=== PATIENT | female | born 1950 | race Caucasian/White ===

== ENCOUNTER 2019-03-28 07:00 | Inpatient (IN) | payer MEDICARE, MEDICAID ==
[2019-03-28] MEDS ORDERED: Lidocaine 1% w/Epinephrine 1:100K 20 ML VIAL ONE (07:13)
--- NOTE | 2019-03-28 07:44 | CT ---
CT brain noncontrast: 03/28/2019 HISTORY: 68-year-old female status post acute head trauma from fall COMPARISON: 08/17/2010 FINDINGS: Large, confluent regions of encephalomalacia and gliosis involving right frontal, temporal, and parie agnes lobes, with associated ex vacuo dilation of right lateral ventricle. To a lesser degree, there is ex vacuo dilation of left lateral ventricle due to chronic atrophy. Wallerian degeneration of right side of brainstem. Heavy atherosclerotic callus location of intracran ial vertebral arteries and basilar artery. No acute subdural, epidural, subarachnoid, or intra-axial hemorrhage. No acute displaced calvarial fr acture. No mass effect or herniation. No interval change overall. IMPRESSION: 1. No acute intracranial findings. 2. 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 3. Diffuse brain atrophy.
--- NOTE | 2019-03-28 07:48 | CT ---
CT CERVICAL SPINE NONCONTRAST: DATE: 03/28/2019 HISTORY: cervical trauma FINDINGS: There are no jumped or perched facets. There is no evidence of acute fracture. The vertebral body hei ghts are maintained. There is no prevertebral soft tissue swelling. There is moderate degenerative disc disease at several levels. There is no significant degenerative facet disease. IMPRESSION: No evidence of acute fracture or acute traumatic subluxation.
--- NOTE | 2019-03-28 08:56 | RAD ---
CHEST 1 VIEW: Date: 03/28/19 INDICATION: History of CVA and hypertension. Status post fall. COMPARISON: None. FINDINGS: The patient is rotated to the right, limiting exam. There is suspicion for a small right pleural effu ja with right basilar air space opacity. The visualized left lung is clear. Heart size when adjusti ng for positioning and technique is within normal limits. There are vascular calcifications involving the thoracic aorta. No pneumothorax is evident. No definite acute osseous abnormality is noted. Sugg est a healed fracture deformity of the left mid shaft clavicle. IMPRESSION: Small right pleural effusion and right basilar opacity. Some of this could be projection related to t he right hemidiaphragm. Repeat single view of the chest with improved inspiration and positioning is recommended. POS: CET
[2019-03-28 09:47] LABS: Hemoglobin 14.4 g/dL (12.0-16.0); Mean Corpuscular HGB CONC 31.5 g/dL (32.0-36.0); Mean Corpuscular Hemoglobin 30.5 pg (27.0-31.0); Mean Corpuscular Volume 96.8 fL (78.0-98.0); Mean Platelet Volume 7.2 fL (7.4-10.4); Platelet Count 424 thou/uL (130-400); Red Blood Cell (RBC) Count 4.72 mill/uL (4.20-5.40); White Blood Cell (WBC) Count 23.3 thou/uL (4.8-10.8)
[2019-03-28 10:01] LABS: Lactic Acid 2.1 mmol/L (0.5-2.2)
[2019-03-28 10:08] LABS: ALT (SGPT) 11 U/L (8-55); AST (SGOT) 16 U/L (5-34); Albumin 2.8 g/dL (3.4-4.8); Alkaline Phosphatase 155 U/L (40-150); Anion Gap 14 mmol/L (10-20); BUN (Urea Nitrogen) 21 mg/dL (9.8-20.1); Bilirubin, Total 0.4 mg/dL (0.2-1.2); Calc. Creatinine Clearance 0 mL/min (70-130); Calcium 8.9 mg/dL (7.8-10.44); Carbon Dioxide 29 mmol/L (23-31); Chloride 105 mmol/L (98-107); Estimated GFR-MDRD 76; Glucose 114 mg/dL (80-115); Protein, Total 6.8 g/dL (6.0-8.3); Sodium 145 mmol/L (136-145)
[2019-03-28 10:11] LABS: Band 14 % (5-11); Lymphocytes 11 % (21-51); MDiff Complete? YES; Monocytes 8 % (0-10); Neutrophil 67 % (42-75); Platelet Morphology Comment Appears Increased; RBC Morphology Normal
[2019-03-28 10:15] LABS: Bilirubin Moderate (Negative); Blood, Urine Large (Negative); Clarity TURBID (Clear); Glucose, Urine (Dipstick) Negative (Negative); Leukocyte Moderate (Negative); Nitrite Positive (Negative); Protein, Urine (Dipstick) 300 mg/dL (Neg-Trace); Specific Gravity, Urine 1.012 (1.002-1.036); pH, Urine 7.5 (5.0-9.0)
[2019-03-28 10:22] LABS: Crystals/HPF 2+ TRIPLE PHOS HPF (Negative); Hyaline Casts/LPF NONE SEEN LPF (0-3 Hyaline)
[2019-03-28 10:23] LABS: Bacteria/HPF 4+ HPF (None Seen)
[2019-03-28] MEDS ORDERED: Sodium Chloride 0.9% 100 ML ONE (10:46)
[2019-03-28] MEDS ORDERED: Piperacillin/Tazobactam 4.5 GM VIAL ONE (10:46)
[2019-03-28] MEDS ORDERED: Ondansetron PF 4 MG/2 ML Vial IVP PRN (10:55)
[2019-03-28] MEDS ORDERED: Acetaminophen 325 MG TAB PO PRN (10:55)
[2019-03-28] MEDS ORDERED: Ondansetron ODT 4 MG TAB PO PRN (10:55)
[2019-03-28] MEDS ORDERED: Acetaminophen 650 MG Suppository PR PRN (10:55)
[2019-03-28] MEDS ORDERED: hydrALAZINE 20 MG/ML VIAL SLOW IVP PRN (10:55)
--- NOTE | 2019-03-28 11:06 | PDOC.FPRHP ---
- History of Present Illness Chief Complaint: Fall History of Present Illness: Pt is AOx1 on exam, reported at baseline, unable to answer questioning adequately. The following history is obtained from medical records and staff. Fell from bed (approx 2ft) overnight, sustained head laceration, no known new complaints. No reported fever, change in appetite, or hx of O2 requirement. ED Course: CBC, CMP, UA, U/BCx, LA EKG, CXR, CT brain/cspine KCl, levaquin, vanc, zosyn, 1L NS - History PMHx: CVA w/ L hemiplegia, hypothyroid, GERD, HLD, HTN, Generalized seizures PSHx: unknown FHx: unknown Social: Lives at [facility] - Review of Systems ROS unobtainable: due to mental status - Vital signs 155/98, Pulse: 100, Resp: 22, Temp: 98.8 (Oral), Pain: 5, O2 sat: 88 on 4L Oxygen - Physical Exam Constitutional: NAD HEENT: conjunctiva clear, grossly normal vision, MMM Neck: supple, trachea midline Chest: no lesions Heart: normal S1/S2, no murmurs/rubs/gallops, pulses present, no edema, other ( sinus tachycardia) Lungs: CTAB, no respiratory distress, good air movement Abdomen: soft, bowel sounds present, no masses/distention Musculoskeletal: normal structure Neurological: other (baseline neurologic deficits) Skin: no rash/lesions, good turgor Heme/Lymphatic: no unusual bruising or bleeding Psychiatric: normal mood and affect FMR H&P: Results - Labs Result Diagrams: 03/28/19 09:33 03/28/19 09:33 Lab results: WBC 23.3 thou/uL (4.8-10.8) H 03/28/19 09:33 Hgb 14.4 g/dL (12.0-16.0) 03/28/19 09:33 Hct 45.7 % (36.0-47.0) 03/28/19 09:33 MCV 96.8 fL (78.0-98.0) 03/28/19 09:33 Plt Count 424 thou/uL (130-400) H 03/28/19 09:33 Band Neuts % (Manual) 14 % (5-11) H 03/28/19 09:33 Sodium 145 mmol/L (136-145) 03/28/19 09:33 Potassium 3.0 mmol/L (3.5-5.1) L 03/28/19 09:33 Chloride 105 mmol/L (98-107) 03/28/19 09:33 Carbon Dioxide 29 mmol/L (23-31) 03/28/19 09:33 BUN 21 mg/dL (9.8-20.1) H 03/28/19 09:33 Creatinine 0.75 mg/dL (0.6-1.1) 03/28/19 09:33 Glucose 114 mg/dL (80-115) 03/28/19 09:33 Lactic Acid 2.0 mmol/L (0.5-2.2) 03/28/19 10:11 Calcium 8.9 mg/dL (7.8-10.44) 03/28/19 09:33 Total Bilirubin 0.4 mg/dL (0.2-1.2) 03/28/19 09:33 AST 16 U/L (5-34) 03/28/19 09:33 ALT 11 U/L (8-55) 03/28/19 09:33 Alkaline Phosphatase 155 U/L (40-150) H 03/28/19 09:33 Serum Total Protein 6.8 g/dL (6.0-8.3) 03/28/19 09:33 Albumin 2.8 g/dL (3.4-4.8) L 03/28/19 09:33 Urine Ketones Trace mg/dL (Negative) H 03/28/19 09:59 Urine Blood Large (Negative) H 03/28/19 09:59 Urine Nitrite Positive (Negative) H 03/28/19 09:59 Ur Leukocyte Esterase Moderate (Negative) H 03/28/19 09:59 Urine RBC 4-6 HPF (0-3) 03/28/19 09:59 Urine WBC Greater Than 50-TNTC HPF (0-3) H 03/28/19 09:59 Ur Squamous Epith Cells Greater than 50-TNTC HPF (0-3) H 03/28/19 09:59 Urine Bacteria 4+ HPF (None Seen) H 03/28/19 09:59 FMR H&P: A/P - Problem List (1) HTN (hypertension) Current Visit: Yes Status: Acute Code(s): I10 - ESSENTIAL (PRIMARY) HYPERTENSION (2) HLD (hyperlipidemia) Current Visit: Yes Status: Acute Code(s): E78.5 - HYPERLIPIDEMIA, UNSPECIFIED (3) Hypothyroid Current Visit: Yes Status: Acute Code(s): E03.9 - HYPOTHYROIDISM, UNSPECIFIED (4) History of CVA (cerebrovascular accident) Current Visit: Yes Status: Acute Code(s): Z86.73 - PRSNL HX OF TIA (TIA), AND CEREB INFRC W/O RESID DEFICITS (5) Sepsis Current Visit: Yes Status: Acute Code(s): A41.9 - SEPSIS, UNSPECIFIED ORGANISM (6) UTI (urinary tract infection) Current Visit: Yes Status: Acute (7) Acute respiratory failure with hypoxia Current Visit: Yes Status: Acute Code(s): J96.01 - ACUTE RESPIRATORY FAILURE WITH HYPOXIA - Plan Sepsis 2/2 UTI - presenting with elevated WBC count, Tachycardia, and O2 requirement - LA wnl, procal pending, monitor daily CBC - s/p 1L NS, Vanc/zosyn/levaquin in ED - begin rocephin, addition 500ml Bolus - monitor on medical Acute hypoxic respiratory failure - requiring 2L NC in ED on admission - no reported O2 requirement at baseline - CXR wnl, no concern for fluid overload - possibly 2/2 above, monitor. PRN O2 as needed CVA w/ L hemiplegia - reported at baseline, CT head near baseline - NPO pending speech eval Hypothyroid - aware, continue home meds GERD - aware, continue home meds HLD - aware HTN - aware, continue home meds - hydralazine PRN Generalized seizures - aware, continue home meds code: full PCP: Lexi ppx: [facility] dispo: monitor on medical, IV abx FMR H&P: Upper Level - Pertinent history 68F is seen for possible UTI discovered incidentally. This morning, she apparently fell from bed at [facility]. She suffered two laceration on her head, left side. She was brought to ER for futher evaluation. She had imaging of head, neck and chest that did not find any acute injuries. She had her laceration sutured in ER. While in ER, she had routine lab drawn. Labwork was concerning for UTI, including elevated WBC, positive UA and she had vital with increased pulse and respiration. Patient is appear to have baseline demntia with no family or senior care record available for review. RoS could not be obtained due to patient's dementia. Gen: Cachexia, AOx1 (To self), attempting to get out of bed by pulling self up with guardrails. Is able to follow simple command, unable to answer questions besides name. HEENT: Two laceration noted on left fore head, midline trachea, hearing and vision grossly intact but diminished, moist mucosal membrane CV: RRR with no apparent m/g/r. Tachycardic Resp: CTA, no apparent rhonchi, crackles. GI: Soft abdomen, normoactive, not tender to palpation, no suprapubic tenderness MSK: No CVA tenderness Ext: No pitting edema Neuro: Unable to move left arm or leg when requested. Contractures on left side. 1. Sepsis likely due to gram negative kenney urinary infection - Suspected due to positive UA, leukocytosis with left shift and abnormal vitals. - Previous urine culture shows recurrent E. coli infection and occasional proteus. These organisms were resistant to florquinolone and macrobid. - Plan 30 ml/kg fluid bolus total. Will place patient on ceftriaxone. - Further lab includes procalcitonin. Will follow up with blood and urine culture. 2. Hypokalemia: - Potassium was 3.0. Was given 40 of mEq. - Reevaluate again tomorrow. 3. Protein calorie malnutrition - Patient shows sign of cachexia, low albumin. - Consider consultation with dietary for recs on nutritional supplementation. 4. Acute hypoxic resp failure - Apparently is using O2 above baseline. No documentation of her usual O2 saturation - CXR does not shows acute lung abnormalities. Plan to supplement with O2, wean down as appropriate See Game Tester note for chornic issues. - Plan Date/Time: 03/28/19 9626 I, [Dale Rivas], have evaluated this patient and agree with findings/plan as outlined by inclusion intern resident. Pertinent changes/additions are listed here. Addendum - Attending - Attending Attestation Date/Time: 03/28/19 3077 I personally evaluated the patient and discussed the management with Dr. Mathew/ Evelyn. I agree with the History, Examination, Assessment and Plan documented above with any addition or exceptions noted below. Patient with history of dementia and previous CVA presenting after fall at senior care. Upon evaluation, noted to have leukocytosis and UA suggestive of UTI. Due to elevated WBC and tachycardia, presumed sepsis and admitted for further workup. Apparently, she is also not at her mental status baseline. She is currently AxOx1. Exam shows diffuse ecchymosis L side of face with stitches in place. Exam otherwise benign. Labs show leukocytosis, UA c/w UTI, and elevated PCT. CT scan does not show intracranial defect. Patient will be admitted for Sepsis 2/2 UTI. Continue Rocephin and IVF, await cx. Trend PCT. Pain control as needed. Continue chronic meds for chronic conditions. Anticipate 2-3 hospitalization pending clinical course.
[2019-03-28] MEDS ORDERED: Lactated Ringer's 500 ML IV SCH (11:15)
[2019-03-28 15:17] VITALS: BMI 17.2
[2019-03-28] MEDS: cefTRIAXone\\ROCEPHIN 2 GM in Sodium Chloride 0.9% 100 ML IVPB SCH (16:39)
[2019-03-28] MEDS: Divalproex Sodium 125 mg Sprinkle Capsule PO SCH ×2 (16:40→20:46)
[2019-03-28 19:45] LABS: Lactic Acid 2.2 mmol/L (0.5-2.2)
[2019-03-28] MEDS: Atorvastatin Calcium 40 MG TAB PO SCH (20:37)
[2019-03-28] MEDS: Mirtazapine 15 MG TAB PO SCH (20:37)
[2019-03-28] MEDS: Calcium Carbonate + Vit D 1 TAB PO SCH (20:37)
[2019-03-28] MEDS: carBAMazepine 200 MG TAB PO SCH (20:37)
[2019-03-28] MEDS ORDERED: GLUCOSAMINE SULFATE DIPOT CHLR PO SCH (21:00)
[2019-03-28] MEDS ORDERED: [UNRECOGNIZED DRUG - OTHER] PO SCH (21:00)
[2019-03-29] MEDS ORDERED: Lactated Ringer's 500 ML IV SCH (01:15)
--- NOTE | 2019-03-29 02:10 | PDOC.EVN ---
Event Note - Event Note Event Note: Called to pt's bed by nurse. HR 120s, O2 saturation 86-90% on 3 L nc, a change from before. Pulse ox put on ear shows O2 at 98%. Ordered a CXR which appeared better from original and shows a right hemidiaphragm but no signs of pulmonary congestion or new infiltrate to suggest PNA or other process. In addition, I ordered an EKG and 500cc bolus of LR. Minimal crackles heard at right base consistent with previous read of pleural effusion, otherwise moving air. Pt is tachycardic with no murmurs, rubs, or gallops. Pulse appears regular, pending EKG. Will reevaluate after bolus. I would consider CTA chest to rule out PE if pt decompensates further as she is more or less bed bound at an LTACH.
[2019-03-29] MEDS ORDERED: Lactated Ringer's 250 ML IV SCH (03:00)
[2019-03-29] MEDS: Lactated Ringer's 1,000 ML IV SCH ×2 (03:17→12:48)
[2019-03-29 04:46] LABS: ALT (SGPT) 8 U/L (8-55); AST (SGOT) 16 U/L (5-34); Albumin 2.4 g/dL (3.4-4.8); Alkaline Phosphatase 127 U/L (40-150); Anion Gap 13 mmol/L (10-20); BUN (Urea Nitrogen) 13 mg/dL (9.8-20.1); Bilirubin, Total 0.4 mg/dL (0.2-1.2); Calc. Creatinine Clearance 55 mL/min (70-130); Calcium 8.1 mg/dL (7.8-10.44); Carbon Dioxide 23 mmol/L (23-31); Chloride 105 mmol/L (98-107); Estimated GFR-MDRD 89; Globulin 3.1 g/dL (2.4-3.5); Glucose 87 mg/dL (80-115); Potassium 3.2 mmol/L (3.5-5.1); Protein, Total 5.5 g/dL (6.0-8.3); Sodium 138 mmol/L (136-145)
[2019-03-29 04:57] LABS: #Eosinphils 0.2 thou/uL (0.0-0.7); #Lymphocytes 1.9 thou/uL (1.20-3.40); #Neutrophils 15.8 thou/uL (1.40-6.50); %Basophils 0.1 % (0.0-1.0); %Eosinophils 0.9 % (0.0-10.0); %Lymphocytes 9.6 % (21.0-51.0); %Neutrophils 79.5 % (42.0-75.0); Hemoglobin 11.7 g/dL (12.0-16.0); Mean Corpuscular HGB CONC 32.2 g/dL (32.0-36.0); Mean Corpuscular Hemoglobin 30.9 pg (27.0-31.0); Mean Corpuscular Volume 95.9 fL (78.0-98.0); Mean Platelet Volume 7.2 fL (7.4-10.4); Platelet Count 360 thou/uL (130-400); RBC Distribution Width 12.8 % (11.5-14.5); Red Blood Cell (RBC) Count 3.78 mill/uL (4.20-5.40); White Blood Cell (WBC) Count 19.9 thou/uL (4.8-10.8)
[2019-03-29] MEDS: Levothyroxine Sodium 50 MCG TAB PO SCH (05:37)
--- NOTE | 2019-03-29 06:49 | PDOC.FM ---
- Subjective Subjective: Overnight, the patient did get tachycardic up to 120 and was satting 86% on 3LNC. Patient was evaluated by the residents. See event note for details. This AM, the patient resting is comfortably in bed. HR down to 88 and satting 98 % on 2L NC. Denies any symptoms such as fever/chills, NVD, chest pain or palpitations. - Objective MAR Reviewed: Yes Vital Signs & Weight: Vital Signs (12 hours) Temp Pulse Resp BP BP Pulse Ox 03/29/19 04:00 98.9 F 116 H 18 96 03/29/19 02:25 98.9 F 120 H 20 152/91 H 98 03/29/19 00:45 116 H 20 136/88 88 L 03/28/19 19:54 96 03/28/19 19:30 97.5 F L 89 16 146/86 H 96 Weight Admit Weight 43.5 kg Weight 44.044 kg I&O: 03/27/19 03/28/19 03/29/19 06:59 06:59 06:59 Intake Total 1100 Balance 1100 Result Diagrams: 03/29/19 04:01 03/29/19 04:01 Phys Exam - Physical Examination Constitutional: NAD HEENT: PERRLA, moist MMs, sclera anicteric Neck: full ROM Respiratory: no wheezing, no rales, no rhonchi, clear to auscultation bilateral Cardiovascular: RRR, no significant murmur Gastrointestinal: soft, non-tender, no distention Musculoskeletal: pulses present Neurological: moves all 4 limbs Psychiatric: normal affect Skin: no rash, normal turgor, cap refill <2 seconds Dx/Plan (1) HLD (hyperlipidemia) Code(s): E78.5 - HYPERLIPIDEMIA, UNSPECIFIED Status: Acute (2) HTN (hypertension) Code(s): I10 - ESSENTIAL (PRIMARY) HYPERTENSION Status: Acute (3) History of CVA (cerebrovascular accident) Code(s): Z86.73 - PRSNL HX OF TIA (TIA), AND CEREB INFRC W/O RESID DEFICITS Status: Acute (4) Hypothyroid Code(s): E03.9 - HYPOTHYROIDISM, UNSPECIFIED Status: Acute (5) Sepsis Code(s): A41.9 - SEPSIS, UNSPECIFIED ORGANISM Status: Acute (6) UTI (urinary tract infection) Status: Acute - Plan Plan: Sepsis 2/2 UTI Presenting with elevated WBC count, Tachycardia, and O2 requirement. s/p 1L NS, Vanc/zosyn/levaquin in ED. LA wnl. - procal downtrending, monitor daily CBC - Continue rocephin. Can consider transitioning to bactrim as previous Ucx showed sensitivity. Acute hypoxic respiratory failure - requiring 2L NC in ED on admission - no reported O2 requirement at baseline - CXR wnl, no concern for fluid overload - possibly 2/2 above, monitor. PRN O2 as needed. Ween as tolerated. Hypokalemia - K 3.2, will replace. Continue to monitor and replace as needed Tachycardia - given fluid bolus overnight, resolved this aM - Will continue to monitor CVA w/ L hemiplegia - reported at baseline, CT head near baseline Hypothyroid - aware, continue home meds GERD - aware, continue home meds HLD - aware HTN - aware, continue home meds - hydralazine PRN Generalized seizures - aware, continue home meds code: full PCP: Lexi ppx: [facility] dispo: monitor on medical, continue IV abx - possibly home later today and will transition to PO abx Case discussed with Satish. Addendum - Attending - Attending Attestation Date/Time: 03/29/19 9756 I personally evaluated the patient and discussed the management with Dr. Sarah. I agree with the History, Examination, Assessment and Plan documented above with any addition or exceptions noted below. Patient denies complaints this morning. She is here after fall and suspicion for sepsis 2/2 UTI. She has no sepsis s/sx at this time. WBC downtrending. Continues on abx and awaiting cx results. She had some sinus tachycardia overnight and concern for hypoxia but those numbers improved after O2 sat meter moved to her ear. She denies shortness of breath. Monitor HR through the day, though it is currently improved. Await cx results and consider discharge in next day or so as overall stable for discharge.
[2019-03-29] MEDS ORDERED: Potassium Chloride 20 MEQ TAB PO SCH (07:00)
[2019-03-29] MEDS: Divalproex Sodium 125 mg Sprinkle Capsule PO SCH ×3 (08:21→21:52)
[2019-03-29] MEDS: carBAMazepine 200 MG TAB PO SCH ×2 (08:21→20:47)
[2019-03-29] MEDS: Calcium Carbonate + Vit D 1 TAB PO SCH ×2 (08:21→20:47)
[2019-03-29] MEDS ORDERED: Enoxaparin Sodium 40 MG/0.4 ML SYRINGE SC SCH (09:00)
--- NOTE | 2019-03-29 09:28 | RAD ---
ONE VIEW CHEST: HISTORY: Hypoxia. COMPARISON: 03/28/2019. FINDINGS: Atherosclerosis of the aorta is once again noted. Normal cardiac silhouette. There is persistent op acification of the right lung base due to pleural effusion with superimposed parenchymal changes. Th ere does appear to be diminished volume with regards to the right lung which may be due to atelectasi s. There is elevation of the right hemidiaphragm. There is hyperinflation of the left lung. Diffus e bone demineralization is identified. No pneumothorax. IMPRESSION: 1. Diminished lung volume of the right hemithorax which may be due to atelectasis. There appears to be persistent opacification of the right lung base which may also be due to superimposed pleural eff usion. 2. Hyperinflation of the left lung. POS: OFF
[2019-03-29] MEDS: cefTRIAXone\\ROCEPHIN 2 GM in Sodium Chloride 0.9% 100 ML IVPB SCH (12:47)
[2019-03-29] MEDS: Non-Formulary Item 1 EACH (Cran/Vitc/Mannose/Fos/Bromeln [Uti-Stat Liquid] 3,875 MG) PO SCH (13:13)
[2019-03-29] MEDS: Atorvastatin Calcium 40 MG TAB PO SCH (20:47)
[2019-03-29] MEDS: Mirtazapine 15 MG TAB PO SCH (20:47)
[2019-03-30] MEDS: Levothyroxine Sodium 50 MCG TAB PO SCH ×2 (05:28→05:35)
[2019-03-30] MEDS: Lactated Ringer's 1,000 ML IV SCH (05:28)
--- NOTE | 2019-03-30 06:42 | PDOC.FM ---
- Subjective Subjective: NAEO. Patient resting comfortably in bed. No complaints or concerns. - Objective MAR Reviewed: Yes Vital Signs & Weight: Vital Signs (12 hours) Temp Pulse Resp BP Pulse Ox 03/29/19 20:00 97.8 F 98 18 162/99 H 98 Weight Admit Weight 43.5 kg Weight 44.044 kg I&O: 03/28/19 03/29/19 03/30/19 06:59 06:59 06:59 Intake Total 1100 3437 Balance 1100 3437 Result Diagrams: 03/30/19 07:00 03/30/19 07:00 Phys Exam - Physical Examination Constitutional: NAD HEENT: PERRLA, moist MMs, sclera anicteric Neck: full ROM Respiratory: clear to auscultation bilateral Cardiovascular: RRR Gastrointestinal: soft, non-tender, no distention Musculoskeletal: no edema, pulses present Neurological: moves all 4 limbs Psychiatric: normal affect Skin: no rash, normal turgor, cap refill <2 seconds Deviation from normal: contusion and abrasion on left side face Dx/Plan (1) HLD (hyperlipidemia) Code(s): E78.5 - HYPERLIPIDEMIA, UNSPECIFIED Status: Acute (2) HTN (hypertension) Code(s): I10 - ESSENTIAL (PRIMARY) HYPERTENSION Status: Acute (3) History of CVA (cerebrovascular accident) Code(s): Z86.73 - PRSNL HX OF TIA (TIA), AND CEREB INFRC W/O RESID DEFICITS Status: Acute (4) Hypothyroid Code(s): E03.9 - HYPOTHYROIDISM, UNSPECIFIED Status: Acute (5) Sepsis Code(s): A41.9 - SEPSIS, UNSPECIFIED ORGANISM Status: Acute (6) UTI (urinary tract infection) Status: Acute - Plan Plan: Sepsis 2/2 UTI Presenting with elevated WBC count, Tachycardia, and O2 requirement. s/p 1L NS, Vanc/zosyn/levaquin in ED. LA wnl. - procal downtrending, monitor daily CBC - Continue rocephin. Can consider transitioning to ciprofloxacin upon discharge - Ucx grew out Proteus Mirabilis sensitive to cipro. - Blood cx gram + kenney 1/2 - likely contaminant Acute hypoxic respiratory failure - requiring 2L NC in ED on admission - no reported O2 requirement at baseline - CXR wnl, no concern for fluid overload - possibly 2/2 above, monitor. PRN O2 as needed. Patient currently satting 94% on RA Hypokalemia - K 3.2, will replace. Continue to monitor and replace as needed Tachycardia, resolved - Will continue to monitor CVA w/ L hemiplegia - reported at baseline, CT head near baseline Hypothyroid - aware, continue home meds GERD - aware, continue home meds HLD - aware HTN - aware, continue home meds - hydralazine PRN Generalized seizures - aware, continue home meds code: full PCP: Lexi ppx: [facility] Dispo: possibly dc to [place] later today Addendum - Attending - Attending Attestation Date/Time: 03/30/19 1580 I personally evaluated the patient and discussed the management with Dr. Sarah. I agree with the History, Examination, Assessment and Plan documented above with any addition or exceptions noted below. Patient here with sepsis 2/2 UTI and fall with head laceration. She is overall doing well, resting comfortably. Urine cx resulted with Proteus and she can be transitioned to PO therapy at this time. She will get dose of IV Rocephin today and then anticipate dc to long-term afterwards. She has remained afebrile and feeling well at this time.
[2019-03-30 07:32] LABS: Hemoglobin 12.5 g/dL (12.0-16.0); Mean Corpuscular HGB CONC 33.7 g/dL (32.0-36.0); Mean Corpuscular Hemoglobin 31.9 pg (27.0-31.0); Mean Corpuscular Volume 94.5 fL (78.0-98.0); Mean Platelet Volume 7.1 fL (7.4-10.4); Platelet Count 371 thou/uL (130-400); RBC Distribution Width 12.9 % (11.5-14.5); Red Blood Cell (RBC) Count 3.91 mill/uL (4.20-5.40)
[2019-03-30 07:38] LABS: Anion Gap 14 mmol/L (10-20); BUN (Urea Nitrogen) 8 mg/dL (9.8-20.1); Calc. Creatinine Clearance 56 mL/min (70-130); Calcium 8.2 mg/dL (7.8-10.44); Carbon Dioxide 27 mmol/L (23-31); Chloride 100 mmol/L (98-107); Estimated GFR-MDRD 90; Glucose 97 mg/dL (80-115); Potassium 3.3 mmol/L (3.5-5.1); Sodium 138 mmol/L (136-145)
[2019-03-30] MEDS ORDERED: Potassium Chloride 20 MEQ TAB PO SCH (08:00)
[2019-03-30 08:02] LABS: Band 4 % (5-11); Lymphocytes 7 % (21-51); MDiff Complete? YES; Metamyelocyte 1 % (0-0); Monocytes 7 % (0-10); Neutrophil 78 % (42-75); Platelet Morphology Comment Appears Adequate; RBC Morphology Normal; Reactive Lymphocytes 3 % (0-10); White Blood Cell (WBC) Count 28.3 thou/uL (4.8-10.8)
[2019-03-30] MEDS: carBAMazepine 200 MG TAB PO SCH (09:05)
[2019-03-30] MEDS: Calcium Carbonate + Vit D 1 TAB PO SCH (09:06)
[2019-03-30] MEDS: Divalproex Sodium 125 mg Sprinkle Capsule PO SCH ×2 (09:17→14:04)
[2019-03-30 11:50] VITALS: BP 146/92; TEMP 98.2
[2019-03-30] MEDS: cefTRIAXone\\ROCEPHIN 2 GM in Sodium Chloride 0.9% 100 ML IVPB SCH (12:19)
--- NOTE | 2019-03-31 05:12 | DIS ---
DATE OF ADMISSION: 03/28/2019 DATE OF DISCHARGE: 03/30/2019 RESIDENT: Carmen Sarah MD ADMITTING ATTENDING: Sohan Covarrubias MD DISCHARGE ATTENDING: Sohan Covarrubias MD. CONSULTS: Case Management, Speech. PROCEDURES: None. PRIMARY DIAGNOSES: Sepsis secondary to urinary tract infection, acute hypoxic respiratory failure. SECONDARY DIAGNOSES: Cerebrovascular accident with left hemiplegia, hypothyroidism, gastroesophageal reflux disease, hyperlipidemia, hypertension, and generalized seizures. DISCHARGE MEDICATIONS: 1. Tylenol 650 mg oral every 4 hours as needed. 2. Tylenol suppository 650 rectally every 4 hours as needed. 3. Ciprofloxacin 500 mg oral daily. 4. Levothyroxine 50 mcg oral daily. 5. Norvasc 5 mg oral daily. 6. Lisinopril 40 mg oral daily. 7. Sertraline 200 mg oral daily. 8. Mirtazapine 15 mg oral at bedtime. 9. Glucosamine sulfate 2000 mg oral at bedtime. 10. Depakote 375 mg oral 3 times daily. 11. Atorvastatin 40 mg oral at bedtime. 12. UTI-Stat liquid 3875 mg oral twice daily. 13. Carbamazepine 200 mg oral twice daily. 14. Caltrate plus vitamin D3 of 630 mg/500 one tab oral twice daily. DISCONTINUED MEDICATIONS: None. HISTORY OF PRESENT ILLNESS/HOSPITAL COURSE: This is a 68-year-old female, who presented to the ED after a fall from her bed at the long-term. The patient is A and O x1 at baseline and further history was unable to be obtained. History was obtained from medical records from the long-term. The patient reportedly fell about 2 feet off her bed and sustained a head laceration that was repaired in the ED. Per the staff, the patient has not had any fever, change in appetite, and has no O2 requirement at baseline. On arrival to the ED, the patient had an elevated WBC count, tachycardia, and increased O2 requirement. The patient had UA that was positive for nitrite and leukocyte, as well as wbc and bacteria. The patient was given fluids and given a dose of vancomycin, Zosyn and Levaquin in the ED. The patient was admitted to medical floor and started on Rocephin for UTI. The patient was also requiring 2 L nasal cannula in the ED and was weaned off O2 by the end of her stay. The patient's urine culture grew positive for Proteus mirabilis and she was discharged on ciprofloxacin. The patient also had one of two blood cultures positive for gram-positive rods, which is likely contaminant. The patient was also found to be hypokalemic and this was replaced as needed throughout her stay. Patient had improvement in her condition throughout her stay and was discharged to [facility] in stable condition. DISPOSITION: Stable. DISCHARGE INSTRUCTIONS: 1. Location: [facility]. 2. Diet: Regular. 3. Activity: Ad jeremy with fall precautions. 4. Followup: Follow up with PCP within one week. Job ID: [id number] [email or web address]
== END 2019-03-30 16:07 | DRG 871 ==
LOC: ERS 07:00 → T4-B 10:23
PROVIDERS: ADMIT Student in an Organized Health Care Education/Training Program; ATTEND Student in an Organized Health Care Education/Training Program
DX: A41.51 Sepsis due to Escherichia coli [E. coli] (principal); J96.01 Acute respiratory failure with hypoxia; N39.0 Urinary tract infection, site not specified; I69.354 Hemiplegia and hemiparesis following cerebral infarction affecting left non-dominant side; E46 Unspecified protein-calorie malnutrition; Z68.1 Body mass index [BMI] 19.9 or less, adult; E03.9 Hypothyroidism, unspecified; K21.9 Gastro-esophageal reflux disease without esophagitis; E78.5 Hyperlipidemia, unspecified; I10 Essential (primary) hypertension; E87.6 Hypokalemia; G40.409 Other generalized epilepsy and epileptic syndromes, not intractable, without status epilepticus; F32.9 Major depressive disorder, single episode, unspecified; Z79.899 Other long term (current) drug therapy
CPT/HCPCS: 12013; 36415; 51701; 70450; 71045; 72125; 80048; 80053; 81003; 81015; 83605; 84145; 84443; 85025; 87040; 87077; 87086; 87186; 93005; 93010; 96365; 96367; 96368; A4353; J0360; J0696; J1956; J2001; J2543; J3370; J3490

== ENCOUNTER 2019-04-08 11:50 | Inpatient (IN) | payer MEDICARE, MEDICAID ==
[2019-04-08 12:08] LABS: Actual Bicarbonate (HCO3a) 30.7 mEq/L (22-28); Analyzer IN Cardio ER; Base Excess (BEa) 7.1 mEq/L (-2.0 to +3.0); CO2 Tension 39.6 mmHg (35.0-45.0); Calcium, Ionized 1.09 mmol/L (1.12-1.30); Carboxyhemoglobin (COHb) 0.1 gm% (0.0-3.0); Hemoglobin (Hb) 11.3 g/dL (12.0-16.0); Potassium - ABG Lab 2.42 mmol/L (3.70-5.30); pH, Arterial 7.51 (7.35-7.45)
[2019-04-08 12:09] LABS: O2 Tension (PaO2) 58.1 mmHg (> 70.0); Puncture Site LRA
[2019-04-08 12:24] LABS: #Lymphocytes 1.3 thou/uL (1.20-3.40); #Monocytes 1.7 thou/uL (0.11-0.59); #Neutrophils 17.3 thou/uL (1.40-6.50); %Basophils 0.1 % (0.0-1.0); %Eosinophils 0.2 % (0.0-10.0); %Lymphocytes 6.2 % (21.0-51.0); %Monocytes 8.2 % (0.0-10.0); %Neutrophils 85.3 % (42.0-75.0); Hemoglobin 10.7 g/dL (12.0-16.0); Mean Corpuscular HGB CONC 31.2 g/dL (32.0-36.0); Mean Corpuscular Volume 95.9 fL (78.0-98.0); Mean Platelet Volume 7.4 fL (7.4-10.4); Platelet Count 293 thou/uL (130-400); RBC Distribution Width 13.3 % (11.5-14.5); Red Blood Cell (RBC) Count 3.59 mill/uL (4.20-5.40); White Blood Cell (WBC) Count 20.3 thou/uL (4.8-10.8)
[2019-04-08] MEDS ORDERED: Piperacillin/Tazobactam 4.5 GM VIAL ONE (12:48)
[2019-04-08 12:55] LABS: ALT (SGPT) 12 U/L (8-55); AST (SGOT) 35 U/L (5-34); Albumin 2.5 g/dL (3.4-4.8); Alkaline Phosphatase 150 U/L (40-150); Anion Gap 16 mmol/L (10-20); BUN (Urea Nitrogen) 29 mg/dL (9.8-20.1); Bilirubin, Total 0.4 mg/dL (0.2-1.2); Calc. Creatinine Clearance 0 mL/min (70-130); Calcium 8.5 mg/dL (7.8-10.44); Carbon Dioxide 31 mmol/L (23-31); Chloride 105 mmol/L (98-107); Estimated GFR-MDRD 63; Globulin 4.1 g/dL (2.4-3.5); Glucose 184 mg/dL (80-115); Protein, Total 6.6 g/dL (6.0-8.3); Sodium 149 mmol/L (136-145)
[2019-04-08 13:01] LABS: Potassium 2.5 mmol/L (3.5-5.1)
--- NOTE | 2019-04-08 13:01 | RAD ---
PORTABLE CHEST: DATE: 04/08/2019. PROVIDED CLINICAL HISTORY: Dyspnea. FINDINGS: Comparison 03/29/2019. Cardiac and mediastinal silhouette is unchanged in appearance. Elevation of th e right hemidiaphragm with right basilar pleural and/or parenchymal opacity persists, similar to the prior study. Vascular calcification involves the aortic arch. No evidence for pneumothorax. Parenc hymal opacity at the medial left lung base cannot be excluded. IMPRESSION: 1. Possible medial basilar parenchymal opacity. Consider correlation with a lateral view. 2. Persistent elevation of the right hemidiaphragm and basilar pleural parenchymal opacity. POS: OFF
[2019-04-08] MEDS ORDERED: Potassium Chloride 20 MEQ/100 ML PREMIX BAG ONE (13:02)
[2019-04-08 14:05] LABS: Bilirubin Negative (Negative); Blood, Urine Large (Negative); Clarity CLOUDY (Clear); Glucose, Urine (Dipstick) Negative (Negative); Leukocyte Small (Negative); Nitrite Negative (Negative); Protein, Urine (Dipstick) 30 mg/dL (Neg-Trace); Specific Gravity, Urine 1.016 (1.002-1.036)
[2019-04-08 14:07] LABS: RBC/HPF GREATER THAN 50-TNTC HPF (0-3); Squamous Epithelial 0-3 HPF (0-3); WBC/HPF 21-50 HPF (0-3)
[2019-04-08 14:08] LABS: Pathc Cast-AUWi Flag 4.35 (0-2.49)
--- NOTE | 2019-04-08 14:17 | PDOC.FPRHP ---
- History of Present Illness Chief Complaint: hypoxia History of Present Illness: 68 yo [place] F with hx of multiple UTI brought to halfway for low O2 of 80%. EMS was called and put on CPAP. At baseline A&O x1 and lethargic so was unable to obtain history but per PCP this is around her baseline but she converses more than current baseline. In the ER she was tachycardic, febrile with WBC was started on vanc & zosyn empirically. UA was pertinent for UTI. - Allergies/Adverse Reactions Allergies Allergy/AdvReac Type Severity Reaction Status Date / Time No Known Drug Allergies Allergy Verified 03/28/19 12:53 - Home Medications Medication Instructions Recorded Confirmed Type Amlodipine [Norvasc] 5 mg PO DAILY 03/28/19 03/28/19 History Atorvastatin Calcium 40 mg PO HS 03/28/19 03/28/19 History Calcitrate + Vit D3 630mg/500 1 tab PO BID 03/28/19 03/28/19 History Cran/VitC/Mannose/Fos/Bromeln 3,875 mg PO BID 03/28/19 03/28/19 History [Uti-Stat Liquid] Divalproex Sodium [Depakote 375 mg PO TID 03/28/19 03/28/19 History Sprinkle] Glucosamine Sulfate Dipot Chlr 2,000 mg PO HS 03/28/19 03/28/19 History [Glucosamine Sulfate] Levothyroxine Sodium 50 mcg PO DAILY 03/28/19 03/28/19 History Lisinopril 40 mg PO DAILY 03/28/19 03/28/19 History Mirtazapine [Remeron] 15 mg PO HS 03/28/19 03/28/19 History Sertraline HCl 200 mg PO DAILY 03/28/19 03/28/19 History carBAMazepine [Carbamazepine] 200 mg PO BID 03/28/19 03/28/19 History Acetaminophen [Tylenol Regular 650 mg PO Q4H PRN tab 03/30/19 Rx Strength] Acetaminophen [Tylenol Suppository] 650 mg UT Q4H PRN supp 03/30/19 Rx Ciprofloxacin/Ciprofloxa HCl 500 mg PO DAILY #3 tbmp.24hr 03/30/19 Rx [Ciprofloxacin ER 500 mg Tablet] - History PMHx:CVA w/ L hemiplegia, hypothyroid, GERD, HLD, HTN, Generalized seizures PSHx: unkown FHx:unknown Social:Lives at LTAC: [facility] - Review of Systems ROS unobtainable: due to mental status Gastrointestinal: reports: abdominal pain - Vital signs BP: BP: 136/92, Pulse: 93, Resp: 30, Pain: 0, O2 sat: 95 on Bipap, Time: 2018 13:57. - Physical Exam Constitutional: NAD -Constitutional: A&O x1, lethargic, responds to some questions thin, cachectic appearing dry mucosal membranes HEENT: normocephalic and atraumatic, PERRLA, EOMI, no scleral icterus Neck: supple Heart: RRR, normal S1/S2, pulses present Lungs: no respiratory distress -Lungs: dec breath sounds bilaterally at bases Abdomen: soft, bowel sounds present -Abdomen: suprapubic tenderness to palpation -Neurological: left sided upper and lower extremity weakness (residual from stroke) Skin: capillary refill <2 seconds FMR H&P: Results - Labs Result Diagrams: 04/08/19 12:09 04/08/19 18:20 Lab results: WBC 20.3 thou/uL (4.8-10.8) H 04/08/19 12:09 Hgb 10.7 g/dL (12.0-16.0) L 04/08/19 12:09 Hct 34.4 % (36.0-47.0) L 04/08/19 12:09 MCV 95.9 fL (78.0-98.0) 04/08/19 12:09 Plt Count 293 thou/uL (130-400) 04/08/19 12:09 Neutrophils % 85.3 % (42.0-75.0) H 04/08/19 12:09 ABG pH 7.51 (7.35-7.45) H 04/08/19 12:01 ABG pCO2 39.6 mmHg (35.0-45.0) 04/08/19 12:01 ABG pO2 58.1 mmHg (> 70.0) L* 04/08/19 12:01 Sodium 149 mmol/L (136-145) H 04/08/19 12:09 Potassium 2.5 mmol/L (3.5-5.1) L* 04/08/19 12:09 Chloride 105 mmol/L (98-107) 04/08/19 12:09 Carbon Dioxide 31 mmol/L (23-31) 04/08/19 12:09 BUN 29 mg/dL (9.8-20.1) H 04/08/19 12:09 Creatinine 0.89 mg/dL (0.6-1.1) 04/08/19 12:09 Glucose 184 mg/dL (80-115) H 04/08/19 12:09 Lactic Acid 4.5 mmol/L (0.5-2.2) H* 04/08/19 12:09 Calcium 8.5 mg/dL (7.8-10.44) 04/08/19 12:09 Total Bilirubin 0.4 mg/dL (0.2-1.2) 04/08/19 12:09 AST 35 U/L (5-34) H 04/08/19 12:09 ALT 12 U/L (8-55) 04/08/19 12:09 Alkaline Phosphatase 150 U/L (40-150) 04/08/19 12:09 B-Natriuretic Peptide 223.4 pg/mL (0-100) H 04/08/19 12:09 Serum Total Protein 6.6 g/dL (6.0-8.3) 04/08/19 12:09 Albumin 2.5 g/dL (3.4-4.8) L 04/08/19 12:09 - EKG Interpretation EKG: sinus tachycardia - Radiology Interpretation Chest x-ray Status: image reviewed by me, report reviewed by me Additional comment: Medial basilar parynchymal opacity Persistent elevation f right hemidiaphragm & basilar pleural parenchymal opacity FMR H&P: A/P - Problem List (1) Sepsis secondary to UTI Current Visit: Yes Status: Acute Code(s): A41.9 - SEPSIS, UNSPECIFIED ORGANISM; N39.0 - URINARY TRACT INFECTION, SITE NOT SPECIFIED (2) Acute respiratory failure with hypoxia Current Visit: Yes Status: Acute Code(s): J96.01 - ACUTE RESPIRATORY FAILURE WITH HYPOXIA (3) Elevated lactic acid level Current Visit: Yes Status: Acute Code(s): R79.89 - OTHER SPECIFIED ABNORMAL FINDINGS OF BLOOD CHEMISTRY (4) Hypokalemia Current Visit: Yes Status: Acute Code(s): E87.6 - HYPOKALEMIA (5) HLD (hyperlipidemia) Current Visit: No Status: Acute Code(s): E78.5 - HYPERLIPIDEMIA, UNSPECIFIED (6) HTN (hypertension) Current Visit: No Status: Acute Code(s): I10 - ESSENTIAL (PRIMARY) HYPERTENSION (7) History of CVA (cerebrovascular accident) Current Visit: No Status: Acute Code(s): Z86.73 - PRSNL HX OF TIA (TIA), AND CEREB INFRC W/O RESID DEFICITS (8) Hypothyroid Current Visit: No Status: Acute Code(s): E03.9 - HYPOTHYROIDISM, UNSPECIFIED (9) UTI (urinary tract infection) Current Visit: No Status: Acute - Plan #Sepsis 2/2 UTI -Patient met SIRS criteria with: tachycardia, febrile 101.6, elevated WBC with left shift but BPs maintained -UA c/w UTI: LE, WBCs- s/p vanc & zosyn in ER -Pending blood & urine cx for S/S -Continue Zosyn to cover for both UTI and anerobic coverage for aspiration PNA -Admit to IMCU for close monitoring yanick. in regards to respiratory status #Acute hypoxic respiratory failure -80% in halfway, placed on CPAP -ABG with pH 7.5/O2 58/ pCO2 34-consistent with possible chronic respiratory acidosis and metabolic compensation in light of elevated HCO3 -CXR with bilateral pleural opacities, persistent right lung opacity when compared to prior imaging -concern for aspiration pneumonia , procal 0.26 -NPO for now, speech consult -zosyn will cover anaerobics, trend procal -Need to closely monitor respiratory status, should patient mentation change, will obtain ABG #Hyperlactatemia -4.5, likely due to dehydration -s/p 2L fluids -will continue fluid resuscitation in 500cc bolus increments -recheck lactic acid #Hypokalemia -2.5 in ER, s/p 20mEq -could be even lower in light of hyperlactatemia -will give 80mEq, recheck when infusion finishes #Hypernatremia -149, likely from dehydration -fluid bolus -recheck on repeat BMP #Respiratory acidosis with metabolic compensation -O2 58 on ABG, elevated bicarb -continue respiratory support #Anemia, normocytic -Hb 10, stable -Unknown if colonoscopy in past for colon CA screening, consider outpt #History of CVA -persistent left sided neurologic deficits -unsafe to swallow, NPO will consider speech sonult #Hypothyroid -Check TSH -home meds once med rec code: full pcp: alecia dvt ppx: lovenox fluids: SL dispo: >[address] Covarrubias FMR H&P: Upper Level - Pertinent history 68 yo F here from [place] where she was found to have a O2 sat in the low 80s. She has a hx of recent hospitalization for sepsis secondary to a proteus related UTI. She is A&O x1 at baseline, however nursing found her to be less alert than normal. Initially she required BiPAP to maintain O2 sat in ED, this was weaned down to non rebreather at time of evaluation. She was febrile and lab results in the ED found UA c/w UTI, elevated WBC count, elevated lactate, and low K. She was given Vanc and Zosyn in ED in addition to 30 mg/kg bolus in ED. PMHx Dementia HLD HTN MDD ROS unable to be obtained dt mental status. - Pertinent findings See buyer internship note for vitals, full PE, and lab values. General A&O x1, intermittently responsive to questions. When she does answer questions, she does so with inappropriate answers. HEENT healing abrasions on forehead apparently related to previous fall at home CV RRR, no murmur Resp CTA b/l Abd suprapubic tenderness. normal bowel sounds Neuro left arm and leg contracted. Will move R hand and follow commands with that hand. - Plan Date/Time: 04/08/19 1411 IDarvin DO, have evaluated this patient and agree with findings/plan as outlined by buyer internship resident. Pertinent changes/additions are listed here. 1. Sepsis secondary to UTI - admit to IMCU - blood pressure is stable, has received appropriate IVF. Continue maintenance fluids - Continue Zosyn - Blood and urine cx pending 2. Acute hypoxic respiratory failure - blood gas shows low pO2 and an alkalosis. Unclear as to if this is chronic due to what appears to be chronic ateclectatic changes. - continue to monitor respiratory status as there is concern that increased oxygenation my reduce respiratory drive. 3. Hypokalemia - replace IV and recheck BMP following completion - No significant EKG changes 4. Elevated Lactate - Will trend level following IVF. 5. Hypernatremia - 1.4 L free water deficit. She likely has poor PO intake, will monitor level as she is resuscitated. 6. Anemia - unclear etiology. She was anemic in her most recent hospitalization, however prior Hb were WNL. - Consider FOBT to help ID source if this continues fall See buyer internship note for management of chronic disease Addendum - Attending - Attending Attestation Date/Time: 04/08/19 3785 I personally evaluated the patient and discussed the management with Dr. Melly Obrien/ Angelica. I agree with the History, Examination, Assessment and Plan documented above with any addition or exceptions noted below. Patient is a 68-year-old female with history of CVA with residual left-sided deficits and dementia with baseline mentation alert and oriented times one, as well as recent hospitalization for sepsis secondary to proteus UTI Who is being admitted for change in mentation and hypoxia. Per report, patient was noted to have change in mentation at the halfway and was found to be hypoxic on [place]. EMS was called in patient was transferred to the ER for further work up. Patient initially required CPAP therapy but eventually wean down to nonrebreather mask in the ED. Patient overall with poor baseline status, but was slightly more somnolent than what appeared to be her baseline. Labs were obtained which showed a leukocytosis with left shift as well as hypernatremia, hypokalemia, and hyperlactatemia. ABG revealed hypercapnia and mild alkalemia. Urinalysis showed findings suggestive of urinary tract infection and chest x- ray was overall stable from previous. Physical exam showed frail and elderly woman who was somnolent but in no acute distress. Long findings clear heart regular rate and rhythm. Abdomen soft and nondistended. Mucous membranes teardrop. physical exam showed frail and elderly woman who was somnolent but in no acute distress. Lungs findings clear. Heart regular rate and rhythm. Abdomen soft and nondistended. Mucous membranes appear dry.patient will be submitted for concerns of sepsis possibly secondary to UTI. She received vancomycin and Zosyn in the ED and we will continue those at this time. She has been adequately fluid resuscitated and will continue maintenance fluids. Vitals improved this time. Cultures have been obtained and are pending. Lactate is down trending. Procalcitonin is reassuring. She has no evidence of septic shock and her elevated lactate is likely secondary to a combination of hypoxia dehydration. Continue to monitor needed. patient also has a likely acute on chronic hypoxia. She was noted to be hypoxic during previous hospitalization that required supplemental oxygen. This may be a flare of chronic respiratory insufficiency. If she continues to be somnolent with supplemental oxygen, consider repeat ABG to ensure she is not retaining CO2. continue volume resuscitation for her dehydration and hyponatremia, anticipate this is due to poor PO intake of the last few days. Trend as needed. Replete potassium and recheck in a few hours. continue chronic medications for her chronic medical problems. Due to concern for aspiration, continue Zosyn and will obtain speech consult. Fanta Covarrubias MD, MS
[2019-04-08 14:24] LABS: Bacteria/HPF 2+ HPF (None Seen); Hyaline Casts/LPF 7-10 HYALINE CAST LPF (0-3 Hyaline); Manual Microscopic Reviewed? No Path Casts Seen
[2019-04-08] MEDS ORDERED: Potassium Chloride 80 MEQ in Premix Bag 1 BAG IVPB SCH (15:00)
[2019-04-08 16:29] LABS: Lactic Acid 2.2 mmol/L (0.5-2.2)
[2019-04-08] MEDS ORDERED: Sodium Chloride 0.9% (PF) 10 ML VIAL FS PRN (17:36)
[2019-04-08] MEDS: Piperacillin/Tazobactam 3.375 GM in Sodium Chloride 0.9% 100 ML IVPB SCH ×2 (17:56→23:32)
[2019-04-08] MEDS ORDERED: Lactated Ringer's 500 ML IV SCH (18:00)
[2019-04-08] MEDS: Potassium Chloride 40 MEQ in Sodium Chloride 0.9% 250 ML 250 ML IVPB SCH ×2 (18:21→22:49)
[2019-04-08 18:47] LABS: Anion Gap 12 mmol/L (10-20); BUN (Urea Nitrogen) 24 mg/dL (9.8-20.1); Calc. Creatinine Clearance 52 mL/min (70-130); Calcium 7.7 mg/dL (7.8-10.44); Carbon Dioxide 31 mmol/L (23-31); Chloride 109 mmol/L (98-107); Estimated GFR-MDRD 80; Glucose 107 mg/dL (80-115); Sodium 150 mmol/L (136-145)
[2019-04-08 18:49] LABS: Potassium 2.4 mmol/L (3.5-5.1)
[2019-04-08 20:19] LABS: Actual Bicarbonate (HCO3a) 29.5 mEq/L (22-28); Base Excess (BEa) 6.3 mEq/L (-2.0 to +3.0); Calcium, Ionized 1.05 mmol/L (1.12-1.30); Carboxyhemoglobin (COHb) 0.6 gm% (0.0-3.0); Hemoglobin (Hb) 10.1 g/dL (12.0-16.0); O2 Tension (PaO2) 63.5 mmHg (> 70.0); Potassium - ABG Lab 2.86 mmol/L (3.70-5.30); pH, Arterial 7.52 (7.35-7.45)
[2019-04-08 20:23] LABS: Puncture Site RRA
--- NOTE | 2019-04-09 00:14 | PDOC.EVN ---
Event Note - Event Note Event Note: Nurses paged at ~19:30 reporting decreased O2 sats on ventimask down to 88-90% vs. 94-95% noted on previous shift with concern for wet lungs sounds as well. Myself and Dr. Sanders evaluated the patient at the bedside and noted her O2 levels to be between 92-94% & was HD stable. Lung exam was unremarkable. A STAT ABG was also obtained which was actually slightly improved from admission ABG at 7.519/37/63.5/29.5. Per chart review & check out from admitting physicians patient is likely chronically hypoxic to a mild degree. No further intervention therefore indicated at this time. Instructed nurse to notify us with any acute changes in mentation and/or respiratory status.
[2019-04-09 04:51] LABS: #Basophils 0.1 thou/uL (0.0-0.2); #Lymphocytes 2.3 thou/uL (1.20-3.40); #Monocytes 1.5 thou/uL (0.11-0.59); #Neutrophils 18.3 thou/uL (1.40-6.50); %Basophils 0.3 % (0.0-1.0); %Eosinophils 0.1 % (0.0-10.0); %Lymphocytes 10.5 % (21.0-51.0); %Monocytes 6.9 % (0.0-10.0); %Neutrophils 82.2 % (42.0-75.0); Hemoglobin 9.5 g/dL (12.0-16.0); Mean Corpuscular HGB CONC 31.4 g/dL (32.0-36.0); Mean Corpuscular Hemoglobin 30.1 pg (27.0-31.0); Mean Corpuscular Volume 95.8 fL (78.0-98.0); Mean Platelet Volume 7.7 fL (7.4-10.4); Platelet Count 248 thou/uL (130-400); RBC Distribution Width 13.3 % (11.5-14.5); Red Blood Cell (RBC) Count 3.15 mill/uL (4.20-5.40); White Blood Cell (WBC) Count 22.2 thou/uL (4.8-10.8)
[2019-04-09] MEDS: Piperacillin/Tazobactam 3.375 GM in Sodium Chloride 0.9% 100 ML IVPB SCH ×3 (05:05→18:14)
[2019-04-09 05:16] LABS: ALT (SGPT) 10 U/L (8-55); AST (SGOT) 20 U/L (5-34); Albumin 2.2 g/dL (3.4-4.8); Alkaline Phosphatase 124 U/L (40-150); Anion Gap 12 mmol/L (10-20); BUN (Urea Nitrogen) 20 mg/dL (9.8-20.1); Bilirubin, Total 0.5 mg/dL (0.2-1.2); Calc. Creatinine Clearance 58 mL/min (70-130); Calcium 8.1 mg/dL (7.8-10.44); Carbon Dioxide 29 mmol/L (23-31); Chloride 113 mmol/L (98-107); Estimated GFR-MDRD 90; Globulin 3.8 g/dL (2.4-3.5); Glucose 106 mg/dL (80-115); Potassium 3.5 mmol/L (3.5-5.1); Sodium 150 mmol/L (136-145)
[2019-04-09] MEDS ORDERED: Levothyroxine Sodium 50 MCG TAB PO SCH (06:45)
[2019-04-09] MEDS: Labetalol HCl 100 MG/20 ML VIAL SLOW IVP PRN ×2 (06:49→21:41)
--- NOTE | 2019-04-09 08:25 | PDOC.FM ---
- Subjective Subjective: Seen at bedside this morning. Patient is more alert than on admission, however still A&O x1 and answers in 1 word answers. Over night there was some concern with O2 sat a repeat ABG found improvement over all. No current concerns - Objective MAR Reviewed: Yes Vital Signs & Weight: Vital Signs (12 hours) Temp Pulse BP Pulse Ox 04/09/19 07:07 97.0 F L 04/09/19 06:49 99 200/116 H 04/09/19 03:33 98.6 F 04/08/19 23:28 97.8 F 04/08/19 20:25 92 L Weight Weight 43.953 kg Most Recent Monitor Data Heart Rate from ECG 94 NIBP 184/114 NIBP BP-Mean 137 Respiration from ECG 24 SpO2 96 I&O: 04/08/19 04/09/19 04/10/19 06:59 06:59 06:59 Intake Total 1260 Output Total 925 Balance 335 Result Diagrams: 04/09/19 04:20 04/09/19 04:20 Phys Exam - Physical Examination Constitutional: NAD HEENT: moist MMs Respiratory: clear to auscultation bilateral Cardiovascular: RRR, no significant murmur Gastrointestinal: soft Mild suprapubic tenderness Musculoskeletal: no edema No movement of R UE and LE Deviation from normal: A&O x1, will answer yes/no questions Skin: no rash Dx/Plan (1) Sepsis secondary to UTI Code(s): A41.9 - SEPSIS, UNSPECIFIED ORGANISM; N39.0 - URINARY TRACT INFECTION, SITE NOT SPECIFIED Status: Acute (2) Hypernatremia Code(s): E87.0 - HYPEROSMOLALITY AND HYPERNATREMIA Status: Acute (3) Acute respiratory failure with hypoxia Code(s): J96.01 - ACUTE RESPIRATORY FAILURE WITH HYPOXIA Status: Acute (4) Elevated lactic acid level Code(s): R79.89 - OTHER SPECIFIED ABNORMAL FINDINGS OF BLOOD CHEMISTRY Status : Resolved (5) Hypokalemia Code(s): E87.6 - HYPOKALEMIA Status: Resolved (6) HLD (hyperlipidemia) Code(s): E78.5 - HYPERLIPIDEMIA, UNSPECIFIED Status: Chronic (7) HTN (hypertension) Code(s): I10 - ESSENTIAL (PRIMARY) HYPERTENSION Status: Chronic (8) History of CVA (cerebrovascular accident) Code(s): Z86.73 - PRSNL HX OF TIA (TIA), AND CEREB INFRC W/O RESID DEFICITS Status: Chronic (9) Hypothyroid Code(s): E03.9 - HYPOTHYROIDISM, UNSPECIFIED Status: Chronic (10) Anemia Code(s): D64.9 - ANEMIA, UNSPECIFIED Status: Acute - Plan Plan: 1. Sepsis secondary to UTI - no longer meets sepsis criteria - Urine culture shows gram neg rods at this time, speciation/sensitivity pending - continue Zosyn, will adjust when sensitivity result 2. Acute on chronic hypoxemic respiratory failure - currently satting in high 90s on venti mask, work to decrease today. This is likely related mental status and chronic hypoventilation more than pulmonary pathology. 3. Hypernatremia - giving 1/2NS w/KCL, recheck BMP this afternoon. Goal would be to decrease by 10 over 24 hours 4. Hypokalemia, resolved 5. Elevated lactic acid, resolved 6. HTN - waiting for ST to restart home PO meds. PRN IV meds until that point 7. Hypothyroid - restart home synthroid. TSH WNL 8. HLD - home meds 9. hx of cva 10. Anemia - patient was not anemic on her last admission. Unclear source at this time. FOBT is pending. Continue to monitor. Dispo: Stable and improving, though [facility] prognosis is poor given chronic comorbidities. Length of stay greater than 48 hours. Addendum - Attending - Attending Attestation Date/Time: 04/09/19 7185 I personally evaluated the patient and discussed the management with Dr. Dominguez. I agree with the History, Examination, Assessment and Plan documented above with any addition or exceptions noted below.
[2019-04-09] MEDS: Enoxaparin Sodium 40 MG/0.4 ML SYRINGE SC SCH (10:02)
[2019-04-09] MEDS: 1/2 NS w/KCL 20 mEq 1,000 ML IV SCH ×2 (10:02→19:50)
[2019-04-09] MEDS: Pantoprazole 40 MG VIAL IVP SCH (10:02)
[2019-04-09 15:13] LABS: Anion Gap 14 mmol/L (10-20); BUN (Urea Nitrogen) 19 mg/dL (9.8-20.1); Calc. Creatinine Clearance 57 mL/min (70-130); Calcium 8.2 mg/dL (7.8-10.44); Carbon Dioxide 29 mmol/L (23-31); Chloride 110 mmol/L (98-107); Estimated GFR-MDRD Greater than 90; Glucose 94 mg/dL (80-115); Potassium 3.4 mmol/L (3.5-5.1); Sodium 150 mmol/L (136-145)
[2019-04-09] MEDS: Loperamide HCl 2 MG CAP PO SCH (15:23)
[2019-04-09] MEDS: Divalproex Sodium 125 mg Sprinkle Capsule PO SCH ×3 (15:23→20:01)
[2019-04-09] MEDS: Calcium Carbonate + Vit D 1 TAB PO SCH ×2 (15:23→20:00)
[2019-04-09] MEDS: Lisinopril 20 MG TAB PO SCH (15:43)
[2019-04-09] MEDS: Amlodipine 5 MG TAB PO SCH (15:43)
[2019-04-09] MEDS: carBAMazepine 200 MG TAB PO SCH ×2 (15:52→18:13)
[2019-04-09] MEDS: Potassium Chloride 40 MEQ in Dextrose 5% in Water 1,000 ML IV SCH (19:52)
[2019-04-09] MEDS: Mirtazapine 15 MG TAB PO SCH (20:01)
[2019-04-09] MEDS: Atorvastatin Calcium 40 MG TAB PO SCH (20:01)
--- NOTE | 2019-04-09 21:15 | CON ---
DATE OF CONSULTATION: 04/09/2019 REASON FOR CONSULTATION: For IMCU placement. The following encompassed 30 minutes time, of that time, greater than 50% was spent with the patient and/or the patient's unit in the hospital. HISTORY OF PRESENT ILLNESS: The patient is a 68-year-old assisted patient who was brought in to the hospital yesterday with low O2 saturations. She was thought to be septic secondary to urinary tract infection. She was briefly on BiPAP, the status has now been discontinued. The patient is essentially nonverbal unless aggressively stimulated. She does not answer questions consistently. PAST MEDICAL HISTORY: 1. Stroke with left hemiparesis. 2. Hypothyroidism. 3. Gastroesophageal reflux. 4. Hypertension. 5. Seizure disorder. 6. Hyperlipidemia. PAST SURGICAL HISTORY: Unknown. FAMILY HISTORY: Unknown. SOCIAL HISTORY: Lives in a assisted [place]. REVIEW OF SYSTEMS: Unobtainable as the patient will not cooperate. MEDICATIONS PRIOR TO ADMISSION: 1. Norvasc. 2. Atorvastatin. 3. Caltrate. 4. Depakote sprinkles. 5. Glucosamine. 6. Levothyroxine. 7. Lisinopril. 8. Mirtazapine. 9. Sertraline. 10. Carbamazepine. 11. Acetaminophen. 12. Cipro. PHYSICAL EXAMINATION: VITAL SIGNS: Temperature 97.9, pulse 94, blood pressure 171/108. Intake for 24 hours 1260, output 925. HEENT: Neck tilted toward the right. Pupils reactive. Sclerae anicteric. Oropharynx is clear. Neck, no JVD. CHEST: Clear anteriorly. CARDIAC: S1, S2, regular without audible murmur. ABDOMEN: Soft, nontender to palpation. EXTREMITIES: No clubbing, cyanosis, or edema. She has fractured left arm, left leg. She has decreased movement, left arm, left leg. IMAGING: Chest x-ray shows bilateral effusions, right greater than left. LABORATORY DATA: Sodium 150, potassium 3.4, chloride 110, CO2 of 29, BUN 19, creatinine 0.6, and glucose 94. Urinalysis, too numerous to red blood cells, 21-50 white blood cells, hematocrit 30.2, platelet count 348. ASSESSMENT: 1. Urosepsis. 2. Status post acute hypoxic respiratory failure requiring noninvasive mechanical ventilation. 3. Previous stroke. 4. Generalized failure to thrive. PLAN: In my opinion, the patient has improved enough where she can be transferred to the floor. Continue antibiotic therapy until the results of her culture are known. accordingly. Job ID: [id number]
[2019-04-09 22:54] LABS: Anion Gap 13 mmol/L (10-20); BUN (Urea Nitrogen) 17 mg/dL (9.8-20.1); Calc. Creatinine Clearance 54 mL/min (70-130); Carbon Dioxide 30 mmol/L (23-31); Chloride 104 mmol/L (98-107); Estimated GFR-MDRD 87; Glucose 116 mg/dL (80-115); Potassium 3.2 mmol/L (3.5-5.1); Sodium 144 mmol/L (136-145)
[2019-04-10] MEDS: Piperacillin/Tazobactam 3.375 GM in Sodium Chloride 0.9% 100 ML IVPB SCH ×5 (00:39→23:40)
[2019-04-10 04:32] LABS: #Eosinphils 0.1 thou/uL (0.0-0.7); #Lymphocytes 2.7 thou/uL (1.20-3.40); #Monocytes 1.3 thou/uL (0.11-0.59); #Neutrophils 15.9 thou/uL (1.40-6.50); %Basophils 0.1 % (0.0-1.0); %Eosinophils 0.3 % (0.0-10.0); %Lymphocytes 13.5 % (21.0-51.0); %Monocytes 6.5 % (0.0-10.0); %Neutrophils 79.6 % (42.0-75.0); Hemoglobin 9.3 g/dL (12.0-16.0); Mean Corpuscular HGB CONC 31.1 g/dL (32.0-36.0); Mean Corpuscular Hemoglobin 30.2 pg (27.0-31.0); Mean Corpuscular Volume 97.1 fL (78.0-98.0); Platelet Count 235 thou/uL (130-400); RBC Distribution Width 13.5 % (11.5-14.5); Red Blood Cell (RBC) Count 3.08 mill/uL (4.20-5.40)
[2019-04-10 04:53] LABS: ALT (SGPT) 9 U/L (8-55); AST (SGOT) 17 U/L (5-34); Alkaline Phosphatase 112 U/L (40-150); Anion Gap 11 mmol/L (10-20); BUN (Urea Nitrogen) 15 mg/dL (9.8-20.1); Bilirubin, Total 0.5 mg/dL (0.2-1.2); Calc. Creatinine Clearance 53 mL/min (70-130); Carbon Dioxide 28 mmol/L (23-31); Chloride 105 mmol/L (98-107); Estimated GFR-MDRD 84; Globulin 3.6 g/dL (2.4-3.5); Glucose 129 mg/dL (80-115); Potassium 3.5 mmol/L (3.5-5.1); Protein, Total 5.6 g/dL (6.0-8.3); Sodium 140 mmol/L (136-145)
[2019-04-10] MEDS: Potassium Chloride 40 MEQ in Dextrose 5% in Water 1,000 ML IV SCH (05:21)
[2019-04-10] MEDS: Levothyroxine Sodium 50 MCG TAB PO SCH (05:22)
[2019-04-10 05:30] VITALS: BMI 16.7
--- NOTE | 2019-04-10 07:46 | PDOC.FM ---
- Subjective Subjective: Patient resting comfortably this morning. Since yesterday she has been moved down to O2 via NC. She is much more alert and interactive today than compared to yesterday. No acute events over night. - Objective MAR Reviewed: Yes Vital Signs & Weight: Vital Signs (12 hours) Temp Pulse BP Pulse Ox 04/10/19 07:17 98.2 F 04/10/19 03:32 99.6 F 04/09/19 23:37 99.2 F 04/09/19 21:41 99 183/112 H 04/09/19 20:00 100 Weight Admit Weight 45.36 kg Weight 44.407 kg Most Recent Monitor Data Heart Rate from ECG 82 NIBP 124/84 NIBP BP-Mean 97 Respiration from ECG 23 SpO2 95 I&O: 04/09/19 04/10/19 04/11/19 06:59 06:59 06:59 Intake Total 1260 2165 Output Total 925 1500 Balance 335 665 Result Diagrams: 04/10/19 04:08 04/10/19 04:08 Phys Exam - Physical Examination Constitutional: NAD HEENT: PERRLA, moist MMs Respiratory: clear to auscultation bilateral Cardiovascular: RRR, no significant murmur Gastrointestinal: soft, non-tender, no distention Musculoskeletal: no edema L UE and LE hemiparesis Deviation from normal: A&O x1. Answers with 1 word sentances. More easily aroused than previous day Skin: no rash Dx/Plan (1) UTI (urinary tract infection) Status: Acute (2) Sepsis secondary to UTI Code(s): A41.9 - SEPSIS, UNSPECIFIED ORGANISM; N39.0 - URINARY TRACT INFECTION, SITE NOT SPECIFIED Status: Resolved (3) Hypernatremia Code(s): E87.0 - HYPEROSMOLALITY AND HYPERNATREMIA Status: Resolved (4) Acute respiratory failure with hypoxia Code(s): J96.01 - ACUTE RESPIRATORY FAILURE WITH HYPOXIA Status: Resolved (5) Elevated lactic acid level Code(s): R79.89 - OTHER SPECIFIED ABNORMAL FINDINGS OF BLOOD CHEMISTRY Status : Resolved (6) Hypokalemia Code(s): E87.6 - HYPOKALEMIA Status: Resolved (7) HLD (hyperlipidemia) Code(s): E78.5 - HYPERLIPIDEMIA, UNSPECIFIED Status: Chronic (8) HTN (hypertension) Code(s): I10 - ESSENTIAL (PRIMARY) HYPERTENSION Status: Chronic (9) History of CVA (cerebrovascular accident) Code(s): Z86.73 - PRSNL HX OF TIA (TIA), AND CEREB INFRC W/O RESID DEFICITS Status: Chronic (10) Hypothyroid Code(s): E03.9 - HYPOTHYROIDISM, UNSPECIFIED Status: Chronic (11) Anemia Code(s): D64.9 - ANEMIA, UNSPECIFIED Status: Acute - Plan Plan: 1. Sepsis secondary to UTI - no longer meets sepsis criteria - overall patient doing much better. She is alert enough to swallow pills. When cultures result will move to orals and would be ready to dc at that time. - Transfer to med 2. Acute on chronic hypoxemic respiratory failure, resolved 3. Hypernatremia, resolved 4. Hypokalemia, resolved 5. Elevated lactic acid, resolved 6. HTN - waiting for ST to restart home PO meds. PRN IV meds until that point 7. Hypothyroid - restart home synthroid. TSH WNL 8. HLD - home meds 9. hx of cva 10. Anemia - stable Dispo: Doing well, though fdc prognosis is poor given chronic comorbidities. Length of stay 24-48 hours Addendum - Attending - Attending Attestation Date/Time: 04/10/19 9531 I personally evaluated the patient and discussed the management with Dr. Dominguez. I agree with the History, Examination, Assessment and Plan documented above with any addition or exceptions noted below. She is also c/o neck pain, but no f/c/cp/sob. Will d/w PCP and likely plan for imaging today.
[2019-04-10] MEDS: Lisinopril 20 MG TAB PO SCH (09:55)
[2019-04-10] MEDS: Enoxaparin Sodium 40 MG/0.4 ML SYRINGE SC SCH (09:55)
[2019-04-10] MEDS: Pantoprazole 40 MG VIAL IVP SCH (09:55)
[2019-04-10] MEDS: Divalproex Sodium 125 mg Sprinkle Capsule PO SCH ×3 (09:56→21:21)
[2019-04-10] MEDS: Calcium Carbonate + Vit D 1 TAB PO SCH ×2 (09:56→21:20)
[2019-04-10] MEDS: carBAMazepine 200 MG TAB PO SCH ×2 (09:56→17:32)
[2019-04-10] MEDS: Amlodipine 5 MG TAB PO SCH (09:56)
[2019-04-10] MEDS: Loperamide HCl 2 MG CAP PO SCH (11:57)
[2019-04-10] MEDS: 1/2 NS w/KCL 20 mEq 1,000 ML IV SCH (12:55)
[2019-04-10] MEDS: Atorvastatin Calcium 40 MG TAB PO SCH (21:20)
[2019-04-10] MEDS: Mirtazapine 15 MG TAB PO SCH (21:21)
[2019-04-11] MEDS: Labetalol HCl 100 MG/20 ML VIAL SLOW IVP PRN (05:34)
[2019-04-11] MEDS: Piperacillin/Tazobactam 3.375 GM in Sodium Chloride 0.9% 100 ML IVPB SCH (05:41)
[2019-04-11] MEDS: Levothyroxine Sodium 50 MCG TAB PO SCH (05:42)
[2019-04-11] MEDS: 1/2 NS w/KCL 20 mEq 1,000 ML IV SCH (05:42)
[2019-04-11 05:53] LABS: ALT (SGPT) 9 U/L (8-55); AST (SGOT) 20 U/L (5-34); Albumin 2.3 g/dL (3.4-4.8); Alkaline Phosphatase 127 U/L (40-150); Anion Gap 14 mmol/L (10-20); BUN (Urea Nitrogen) 12 mg/dL (9.8-20.1); Bilirubin, Total 0.6 mg/dL (0.2-1.2); Calc. Creatinine Clearance 54 mL/min (70-130); Calcium 8.1 mg/dL (7.8-10.44); Carbon Dioxide 28 mmol/L (23-31); Chloride 103 mmol/L (98-107); Estimated GFR-MDRD 86; Globulin 3.9 g/dL (2.4-3.5); Glucose 88 mg/dL (80-115); Potassium 3.2 mmol/L (3.5-5.1); Protein, Total 6.2 g/dL (6.0-8.3); Sodium 142 mmol/L (136-145)
[2019-04-11 06:08] LABS: Hemoglobin 12.2 g/dL (12.0-16.0); Lymphocytes 8 % (21-51); MDiff Complete? YES; Mean Corpuscular HGB CONC 31.4 g/dL (32.0-36.0); Mean Corpuscular Hemoglobin 29.5 pg (27.0-31.0); Mean Corpuscular Volume 93.7 fL (78.0-98.0); Mean Platelet Volume 8.2 fL (7.4-10.4); Monocytes 5 % (0-10); Neutrophil 87 % (42-75); Platelet Count 208 thou/uL (130-400); Platelet Morphology Comment Appears Adequate; RBC Distribution Width 13.3 % (11.5-14.5); RBC Morphology Normal; Red Blood Cell (RBC) Count 4.13 mill/uL (4.20-5.40); White Blood Cell (WBC) Count 19.2 thou/uL (4.8-10.8)
[2019-04-11] MEDS: Divalproex Sodium 125 mg Sprinkle Capsule PO SCH ×2 (08:11→16:24)
[2019-04-11] MEDS: Lisinopril 20 MG TAB PO SCH (08:11)
[2019-04-11] MEDS: carBAMazepine 200 MG TAB PO SCH ×2 (08:12→16:24)
[2019-04-11] MEDS: Amlodipine 5 MG TAB PO SCH (08:12)
[2019-04-11] MEDS: Potassium Bicarbonate/Cit Ac 25 MEQ TAB PO SCH ×2 (08:12→16:24)
[2019-04-11] MEDS: Calcium Carbonate + Vit D 1 TAB PO SCH (08:12)
[2019-04-11] MEDS: Enoxaparin Sodium 40 MG/0.4 ML SYRINGE SC SCH (08:12)
[2019-04-11] MEDS: Loperamide HCl 2 MG CAP PO SCH (08:12)
--- NOTE | 2019-04-11 09:18 | PDOC.FM ---
- Subjective Subjective: Moved to medical yesterday. Patient resting comfortably. No acute events overnight. No new complaints - Objective MAR Reviewed: Yes Vital Signs & Weight: Vital Signs (12 hours) Temp Pulse Resp BP BP Pulse Ox 04/11/19 08:12 71 175/97 H 04/11/19 08:11 175/97 H 04/11/19 08:00 96 04/11/19 07:12 97.9 F 71 16 175/97 H 96 04/11/19 06:00 165/96 H 04/11/19 05:34 73 172/101 H 04/11/19 04:00 98.5 F 86 18 95 04/11/19 00:00 98.3 F 91 16 162/94 H 94 L Weight Admit Weight 45.36 kg Weight 44.407 kg Most Recent Monitor Data Heart Rate from ECG 84 NIBP 128/80 NIBP BP-Mean 96 Respiration from ECG 23 SpO2 92 I&O: 04/10/19 04/11/19 04/12/19 06:59 06:59 06:59 Intake Total 2165 1965 Output Total 1500 600 Balance 665 1365 Result Diagrams: 04/11/19 05:14 04/11/19 05:14 Phys Exam - Physical Examination Constitutional: NAD HEENT: oral pharynx no lesions Neck: no JVD Respiratory: clear to auscultation bilateral Cardiovascular: RRR, no significant murmur Gastrointestinal: soft, non-tender, no distention Musculoskeletal: no edema Contracted L side and neck Deviation from normal: A&O x1. Answers some questions in short sentences Skin: no rash Dx/Plan (1) UTI (urinary tract infection) Status: Acute (2) Sepsis secondary to UTI Code(s): A41.9 - SEPSIS, UNSPECIFIED ORGANISM; N39.0 - URINARY TRACT INFECTION, SITE NOT SPECIFIED Status: Resolved (3) Hypernatremia Code(s): E87.0 - HYPEROSMOLALITY AND HYPERNATREMIA Status: Resolved (4) Acute respiratory failure with hypoxia Code(s): J96.01 - ACUTE RESPIRATORY FAILURE WITH HYPOXIA Status: Resolved (5) Elevated lactic acid level Code(s): R79.89 - OTHER SPECIFIED ABNORMAL FINDINGS OF BLOOD CHEMISTRY Status : Resolved (6) Hypokalemia Code(s): E87.6 - HYPOKALEMIA Status: Resolved (7) HLD (hyperlipidemia) Code(s): E78.5 - HYPERLIPIDEMIA, UNSPECIFIED Status: Chronic (8) HTN (hypertension) Code(s): I10 - ESSENTIAL (PRIMARY) HYPERTENSION Status: Chronic (9) History of CVA (cerebrovascular accident) Code(s): Z86.73 - PRSNL HX OF TIA (TIA), AND CEREB INFRC W/O RESID DEFICITS Status: Chronic (10) Hypothyroid Code(s): E03.9 - HYPOTHYROIDISM, UNSPECIFIED Status: Chronic (11) Anemia Code(s): D64.9 - ANEMIA, UNSPECIFIED Status: Acute - Plan Plan: 1. Sepsis secondary to UTI - Urine cultures show normal lilian, however patient has been improving on abx. Will continue for 7 total days of abx. 2. Acute on chronic hypoxemic respiratory failure, resolved 3. Hypernatremia, resolved 4. Hypokalemia, resolved 5. Elevated lactic acid, resolved 6. HTN - waiting for ST to restart home PO meds. PRN IV meds until that point 7. Hypothyroid - restart home synthroid. TSH WNL 8. HLD - home meds 9. hx of cva 10. Anemia - stable Dispo: Dc back to NH today on oral abx Addendum - Attending - Attending Attestation Date/Time: 04/11/19 9179 I personally evaluated the patient and discussed the management with Dr. Dominguez. I agree with the History, Examination, Assessment and Plan documented above with any addition or exceptions noted below. Discussed patient with PCP, who notes that she has had neck deviation as described for a long time. Will hold any additional imaging. Transition to PO , monitor mental status, and consider d/c today or tomorrow.
[2019-04-11] MEDS ORDERED: Magnesium Sulfate 3 GM in Sodium Chloride 0.9% 100 ML IVPB SCH (09:30)
[2019-04-11] MEDS ORDERED: Cefdinir 300 MG CAP PO SCH ×2 (10:00→21:00)
[2019-04-11] MEDS: MANNOSE PO SCH (12:16)
[2019-04-11] MEDS: CRAN PO SCH (12:16)
[2019-04-11] MEDS: FOS PO SCH (12:16)
[2019-04-11] MEDS: BROMELN PO SCH (12:16)
[2019-04-11] MEDS: VITC PO SCH (12:16)
[2019-04-11 15:36] VITALS: BP 153/94; TEMP 98.7
--- NOTE | 2019-04-12 08:46 | DIS ---
DATE OF ADMISSION: 04/08/2019 DATE OF DISCHARGE: 04/11/2019 ADMITTING ATTENDING: Sohan Covarrubias MD RESIDENT: Darvin Dominguez DO. CONSULTS: Critical Care, Jose Call MD. PROCEDURES: Chest x-ray finding on 04/08, possible medial basilar parenchymal opacities, persistent elevation of the right hemidiaphragm and pleural parenchymal opacity. ADMITTING DIAGNOSES: 1. Sepsis secondary to suspected urinary tract infection and/or pneumonia. 2. Hypernatremia. 3. Acute hypoxic respiratory failure. SECONDARY DIAGNOSES: 1. Elevated lactic acid. 2. Hypokalemia. 3. Hyperlipidemia. 4. Hypertension. 5. History of cerebrovascular accident. 6. Hypothyroid. 7. Chronic normocytic anemia. DISCHARGE MEDICATIONS: 1. Levothyroxine 50 mcg p.o. daily. 2. Norvasc 5 mg p.o. daily. 3. Lisinopril 40 mg p.o. daily. 4. Sertraline 200 mg p.o. daily. 5. Remeron 15 mg p.o. at bedtime. 6. Glucosamine 2000 mg p.o. at bedtime. 7. Depakote 375 mg p.o. t.i.d. 8. Atorvastatin 40 mg p.o. at bedtime. 9. UTI-Stat liquid 3875 mg p.o. b.i.d. 10. Carbamazepine 200 mg p.o. daily. 11. Caltrate plus vitamin D3 of 630 mg/500 mg one tab p.o. b.i.d. 12. Mucinex 600 mg p.o. b.i.d. as needed for cough. 13. Clonidine 0.1 mg p.o. b.i.d. p.r.n. for hypertension. 14. Claritin 10 mg p.o. daily. 15. Loperamide 2 mg p.o. daily. 16. Tylenol No. 3 one tab p.o. q.6 p.r.n. pain. 17. Omnicef 300 mg p.o. b.i.d. x4 days. HOSPITAL COURSE: This is a 68-year-old female, who presents from [facility] with complaint of hypoxia and altered mental status. She was admitted recently for similar symptoms and was found to be in sepsis secondary to urinary tract infection from a pansensitive Proteus. Upon this admission, the patient had an elevated white count of 20, hemoglobin of 10.7, normal platelets, and left shift with neutrophils of 85.3%. Blood gas on admission showed a pH of 7.51 with pCO2 of 39.6 and pO2 of 58.1. She had abnormalities in chemistry on admission showed a sodium of 149, potassium of 2.5, glucose of 184, lactic acid of 4.5. Normal troponin. A BNP of 223. She had a positive procalcitonin of 0.36 and a TSH of 1.14. Urine on admission showed large blood, small leukocyte esterase, greater than 50 red cells, 21 to 50 white cells, 0 to 3 squames, urine bacteria 2+, and 7 to 10 hyaline casts. In the emergency room, the patient was found to be hypoxic and was started on a Ventimask. She is also altered from her typical baseline mental status, which is A and O x1 with short one to three word answers. In the emergency room, she remained A and O x1, however, would not answer questions and was difficult to arouse. The patient was given vancomycin and Zosyn in the emergency room and admitted to the [facility] as she there were periods of time prior to admission, which did require BiPAP due to decreased respiratory effort. After admission, the patient remained on Zosyn as it was suspected urinary tract infection was the etiology. However, it is possible that given the respiratory symptoms and abnormal blood gases, this was related to a pneumonia. Over the course of the following 24 hours, the patient remained on Ventimask, however, had improving respiratory status. She also had a moderately improving psychological assessment. By the second day of admission, the patient appeared to be back to her baseline functional status and no longer required Ventimask and was able to maintain her oxygen saturation on nasal cannula. By the third day of admission, the patient was able to move to p.o. antibiotics and was ready for discharge. Regarding hypernatremia, this has been an issue in the past. It is likely secondary to decreased oral intake. She was initially rehydrated with half NS, however, did not see significant improvement in her sodium, so fluids were changed to D5 water. After 1.5 L of resuscitation, the patient saw a normalization of her sodium. No point where she is symptomatic related to the hypernatremia. On discharge, the patient had no significant lab abnormalities related to her chemistry other than a mild hypokalemia that was replaced p.o. Culture resulted in only growing less than 10,000 colony-forming units of normal vaginal bacteria, but given the initial UA and history, we may continue to treat what was suspected urinary tract infection. This should be continued for a full 7-day course of antibiotics in the outpatient setting. The patient was discharged back to a fdc on oral antibiotics and was apparently at her normal baseline functional status. DISCHARGE INSTRUCTIONS: 1. Location: [facility] in [place]. 2. Followup: Follow up with Dr. Elliott in 1 week. 3. Activity: The patient apparently does not ambulate. 4. Diet: Regular, full. Job ID: [id number]
--- NOTE | 2019-04-12 15:08 | EKG ---
Test Reason : Blood Pressure : / mmHG Vent. Rate : 113 BPM Atrial Rate : 113 BPM P-R Int : 000 ms QRS Dur : 078 ms QT Int : 460 ms P-R-T Axes : 000 015 038 degrees QTc Int : 630 ms Sinus tachycardia with occasional Premature ventricular complexes Nonspecific ST and T wave abnormality Prolonged QT Abnormal ECG Confirmed by MATT RODRIGUEZ ([id number]), editorial writer POLO JUÁREZ ([id number]) on 04/12/2019 3:07:59 PM Referred By: Confirmed By:MATT RODRIGUEZ
== END 2019-04-11 17:26 | DRG 871 ==
LOC: ERS 11:50 → IMCU/EMU 14:16 → T4-B 04-10 17:54
PROVIDERS: ADMIT Student in an Organized Health Care Education/Training Program; ATTEND Student in an Organized Health Care Education/Training Program
PROC: 5A09457 Assistance with Respiratory Ventilation, 24-96 Consecutive Hours, Continuous Positive Airway Pressure (ICD-10-PCS; principal; 2019-04-08)
DX: A41.9 Sepsis, unspecified organism (principal); J96.21 Acute and chronic respiratory failure with hypoxia; N39.0 Urinary tract infection, site not specified; I69.354 Hemiplegia and hemiparesis following cerebral infarction affecting left non-dominant side; E87.0 Hyperosmolality and hypernatremia; E03.9 Hypothyroidism, unspecified; K21.9 Gastro-esophageal reflux disease without esophagitis; E78.5 Hyperlipidemia, unspecified; I10 Essential (primary) hypertension; E87.6 Hypokalemia; E86.0 Dehydration; D64.9 Anemia, unspecified; F32.9 Major depressive disorder, single episode, unspecified; F03.90 Unspecified dementia, unspecified severity, without behavioral disturbance, psychotic disturbance, mood disturbance, and anxiety; Z79.899 Other long term (current) drug therapy
CPT/HCPCS: 36415; 51702; 71045; 80053; 81003; 81015; 82805; 83605; 83735; 83880; 84145; 84443; 84484; 85025; 87040; 87086; 93005; 94660; 96361; 96365; 96366; 96367; C9113; J1650; J2543; J3370; J3475; J3480; J3490; J7050; J7070

== ENCOUNTER 2019-04-12 21:49 | Inpatient (IN) | payer MEDICARE, MEDICAID ==
[2019-04-12] MEDS ORDERED: Norepinephrine 8 MG in Dextrose 5% in Water 242 ML IVPB PRN (21:56)
[2019-04-12 22:06] LABS: Actual Bicarbonate (HCO3a) 24.4 mEq/L (22-28); Analyzer IN Cardio ER; Base Excess (BEa) 0.4 mEq/L (-2.0 to +3.0); CO2 Tension 36.5 mmHg (35.0-45.0); Calcium, Ionized 0.97 mmol/L (1.12-1.30); Carboxyhemoglobin (COHb) 0.3 gm% (0.0-3.0); Hemoglobin (Hb) 7.8 g/dL (12.0-16.0); Potassium - ABG Lab 2.35 mmol/L (3.70-5.30); pH, Arterial 7.44 (7.35-7.45)
[2019-04-12 22:07] LABS: ALV-art Gradient 587.375 (0-20); Puncture Site LRA
--- NOTE | 2019-04-12 22:11 | RAD ---
AP CHEST: 04/12/19 HISTORY: Assess intubation. Respiratory distress. COMPARISON: 04/08/19. FINDINGS/IMPRESSION: ET tube has tip above tulio and appears adequately positioned. There are bilateral pleural effusions . Mild vascular congestion. Heart size is within normal range and unchanged. POS: [facility]
[2019-04-12] MEDS ORDERED: fentaNYL Citrate/PF 2,000 MCG in Sodium Chloride 0.9% 60 ML IV SCH (22:22)
[2019-04-12 22:24] LABS: Bilirubin Small (Negative); Blood, Urine Large (Negative); Clarity CLOUDY (Clear); Glucose, Urine (Dipstick) Negative (Negative); Leukocyte Trace (Negative); Nitrite Negative (Negative); Protein, Urine (Dipstick) 30 mg/dL (Neg-Trace); Specific Gravity, Urine 1.017 (1.002-1.036)
[2019-04-12 22:26] LABS: Bacteria/HPF None Seen HPF (None Seen)
[2019-04-12 22:27] LABS: Pathc Cast-AUWi Flag 6.12 (0-2.49); Yeast-AUWi Flag 231.3 (0-25.0)
[2019-04-12 22:35] LABS: RBC/HPF 21-50 HPF (0-3)
[2019-04-12 22:38] LABS: Other Casts/LPF 0-3 COARSE GRAN LPF (0-3 Hyaline)
[2019-04-12 23:15] LABS: Hemoglobin 7.8 g/dL (12.0-16.0); Mean Corpuscular HGB CONC 31.4 g/dL (32.0-36.0); Mean Corpuscular Hemoglobin 29.8 pg (27.0-31.0); Mean Platelet Volume 7.9 fL (7.4-10.4); Platelet Count 287 thou/uL (130-400); RBC Distribution Width 13.3 % (11.5-14.5); White Blood Cell (WBC) Count 28.4 thou/uL (4.8-10.8)
[2019-04-12] MEDS ORDERED: cefTRIAXone\\ROCEPHIN 1 GM VIAL ONE (23:16)
[2019-04-12 23:18] LABS: ALT (SGPT) 10 U/L (8-55); AST (SGOT) 32 U/L (5-34); Albumin 1.7 g/dL (3.4-4.8); Alkaline Phosphatase 127 U/L (40-150); Anion Gap 12 mmol/L (10-20); BUN (Urea Nitrogen) 18 mg/dL (9.8-20.1); Bilirubin, Total 0.3 mg/dL (0.2-1.2); Calc. Creatinine Clearance 0 mL/min (70-130); Calcium 6.1 mg/dL (7.8-10.44); Carbon Dioxide 21 mmol/L (23-31); Chloride 115 mmol/L (98-107); Estimated GFR-MDRD Greater than 90; Globulin 2.5 g/dL (2.4-3.5); Glucose 104 mg/dL (80-115); Magnesium 1.4 mg/dL (1.6-2.6); Potassium 2.7 mmol/L (3.5-5.1); Protein, Total 4.2 g/dL (6.0-8.3); Sodium 145 mmol/L (136-145)
[2019-04-12 23:31] LABS: Band 11 % (5-11); Hypochromia SLIGHT = 6-15 cells (100X) (0-5/hpf); Lymphocytes 5 % (21-51); MDiff Complete? YES; Monocytes 2 % (0-10); Neutrophil 82 % (42-75); Platelet Morphology Comment Appears Adequate
--- NOTE | 2019-04-12 23:44 | RAD ---
PORTABLE SUPINE CHEST: 04/12/19 HISTORY: Assess line placement. FINDINGS/IMPRESSION: Patient is intubated. ET tube is above tulio. NG tube is in place and tip passes through the EG marcelino ction. A central line is in place and tip overlies the SVC/right atrium. Bilateral effusions again noted. Lung celaya show no interval change from earlier film. POS: [facility]
[2019-04-13] MEDS ORDERED: Norepinephrine 8 MG in Dextrose 5% in Water 242 ML IVPB PRN (00:11)
[2019-04-13] MEDS ORDERED: DISCONTINUE PREVIOUS NARCOTIC PAIN MEDICATIONS AND BENZODIAZEPINES FS SCH (00:13)
[2019-04-13] MEDS ORDERED: Propofol BOLUS 1,000 MG/100 ML VIAL IV PRN (00:13)
[2019-04-13] MEDS ORDERED: Fentanyl BOLUS 250 ML IVPB PRN (00:13)
[2019-04-13] MEDS ORDERED: fentaNYL Citrate/PF 2,000 MCG in Sodium Chloride 0.9% 60 ML IV SCH (00:13)
[2019-04-13] MEDS ORDERED: Propofol 1,000 MG/100 ML VIAL IV PRN (00:13)
[2019-04-13] MEDS ORDERED: Lorazepam 2 MG/ML VIAL SLOW IVP PRN (00:13)
[2019-04-13] MEDS ORDERED: Morphine 2 MG/ML SYRINGE SLOW IVP PRN (00:13)
[2019-04-13] MEDS: Potassium Chloride 10 MEQ in Premix Bag 1 BAG IVPB SCH ×3 (00:50→02:08)
[2019-04-13] MEDS ORDERED: Acetaminophen 325 MG TAB PO PRN (01:09)
[2019-04-13] MEDS ORDERED: Ondansetron ODT 4 MG TAB PO PRN (01:09)
[2019-04-13] MEDS ORDERED: Acetaminophen 650 MG Suppository PR PRN (01:09)
[2019-04-13] MEDS ORDERED: Ondansetron PF 4 MG/2 ML Vial IVP PRN (01:09)
[2019-04-13] MEDS ORDERED: Potassium Chloride 40 MEQ in Premix Bag 1 BAG IVPB SCH (01:15)
[2019-04-13] MEDS ORDERED: Norepinephrine 8 MG in Dextrose 5% in Water 242 ML IVPB SCH (01:15)
[2019-04-13] MEDS ORDERED: Vancomycin HCl 1 GM in Premix Bag 1 BAG IVPB SCH (01:15)
--- NOTE | 2019-04-13 01:30 | PDOC.FPRHP ---
- History of Present Illness Chief Complaint: Hypoxia History of Present Illness: This is a 68 female with a pmh of HTN, hypothyroidism, chronic normocytic anemia , HLD, hx of CVA who presents to the ER from the [place] with a cc of hypoxia. IN reports pt had agonal breathing with hypoxia down to the 82, and was difficult to arouse. Pt was recently discharged from the hospital on 04/11/19 where she was treated for sepsis 2/2 UTI, hypernatremia, and acute hypoxic respiratory failure. At the time of discharge, pt was reported to be at baseline (AAO x1). ED Course: En route: 2L NS, intubated, 400mg of ketamine and 100mg of enoc In the ER: 30mg of potassium, 1L NS, 1g of rocephin, fentanyl drip, levophed drip - Allergies/Adverse Reactions Allergies Allergy/AdvReac Type Severity Reaction Status Date / Time No Known Drug Allergies Allergy Verified 04/09/19 00:31 - Home Medications Medication Instructions Recorded Confirmed Type Amlodipine [Norvasc] 5 mg PO DAILY 03/28/19 04/13/19 History Atorvastatin Calcium 40 mg PO HS 03/28/19 04/13/19 History Calcitrate + Vit D3 630mg/500 1 tab PO BID 03/28/19 04/13/19 History Cran/VitC/Mannose/Fos/Bromeln 3,875 mg PO BID 03/28/19 04/13/19 History [Uti-Stat Liquid] Divalproex Sodium [Depakote 375 mg PO TID 03/28/19 04/13/19 History Sprinkle] Glucosamine Sulfate Dipot Chlr 2,000 mg PO HS 03/28/19 04/13/19 History [Glucosamine Sulfate] Levothyroxine Sodium 50 mcg PO DAILY 03/28/19 04/13/19 History Lisinopril 40 mg PO DAILY 03/28/19 04/13/19 History Mirtazapine [Remeron] 15 mg PO HS 03/28/19 04/13/19 History Sertraline HCl 200 mg PO DAILY 03/28/19 04/13/19 History carBAMazepine [Carbamazepine] 200 mg PO BID 03/28/19 04/13/19 History Acetaminophen With Codeine 1 tab PO Q6H PRN 04/09/19 04/13/19 History [Tylenol with Codeine #3] Acetaminophen [Tylenol Regular 650 mg PO Q6H PRN 04/09/19 04/13/19 History Strength] Loperamide HCl [Loperamide] 2 mg PO DAILY 04/09/19 04/13/19 History Loratadine [Claritin] 10 mg PO DAILY PRN 04/09/19 04/13/19 History cloNIDine HCl 0.1 mg PO BID PRN 04/09/19 04/13/19 History guaiFENesin ER [Mucinex] 600 mg PO BID PRN 04/09/19 04/13/19 History Cefdinir [Omnicef] 300 mg PO BID #8 cap 04/11/19 04/13/19 Rx - History PMHx: HTN, HLD, Hypothyroidism, chronic normocytic anemia PSHx: Unknown FHx: Unknown Social: Lives at LTAC: [facility] - Review of Systems ROS unobtainable: due to endotracheal tube (half-way reports agonal breathing with SpO2 in the low 80s on RA) - Vital signs BP: 132/82 HR: 76 RR: 14 Tmax: 97.9 Pox: 98% on Ventilator Wt: 46.9 kg - Physical Exam Constitutional: other (Intubated, unresponsive s/p sedation GCS [id number]) HEENT: normocephalic and atraumatic, PERRLA (small but reactive), MMM Neck: supple, trachea midline, no JVD Heart: RRR, normal S1/S2, no murmurs/rubs/gallops Lungs: good air movement, other (basilar crackles) Abdomen: soft, bowel sounds present, no masses/distention Musculoskeletal: normal structure (no crepitus, bruise over right first toe) Neurological: other (unable to assess due to sedation and mental status) Skin: other (no sacral lesions) Heme/Lymphatic: no purpura, no petechia FMR H&P: Results - Labs Result Diagrams: 04/13/19 04:30 04/13/19 03:30 Lab results: WBC 28.4 thou/uL (4.8-10.8) H 04/12/19 23:02 Hgb 7.8 g/dL (12.0-16.0) L 04/12/19 23:02 Hct 24.7 % (36.0-47.0) L 04/12/19 23:02 MCV 95.0 fL (78.0-98.0) 04/12/19 23:02 Plt Count 287 thou/uL (130-400) 04/12/19 23:02 Band Neuts % (Manual) 11 % (5-11) 04/12/19 23:02 ABG pH 7.44 (7.35-7.45) 04/12/19 21:57 ABG pCO2 36.5 mmHg (35.0-45.0) 04/12/19 21:57 ABG pO2 80.0 mmHg (> 70.0) H 04/12/19 21:57 Sodium 145 mmol/L (136-145) 04/12/19 22:44 Potassium 2.7 mmol/L (3.5-5.1) L* 04/12/19 22:44 Chloride 115 mmol/L (98-107) H 04/12/19 22:44 Carbon Dioxide 21 mmol/L (23-31) L 04/12/19 22:44 BUN 18 mg/dL (9.8-20.1) 04/12/19 22:44 Creatinine 0.60 mg/dL (0.6-1.1) 04/12/19 22:44 Glucose 104 mg/dL (80-115) 04/12/19 22:44 Lactic Acid 0.6 mmol/L (0.5-2.2) 04/12/19 22:44 Calcium 6.1 mg/dL (7.8-10.44) L 04/12/19 22:44 Total Bilirubin 0.3 mg/dL (0.2-1.2) 04/12/19 22:44 AST 32 U/L (5-34) 04/12/19 22:44 ALT 10 U/L (8-55) 04/12/19 22:44 Alkaline Phosphatase 127 U/L (40-150) 04/12/19 22:44 B-Natriuretic Peptide 174.2 pg/mL (0-100) H 04/12/19 23:02 Serum Total Protein 4.2 g/dL (6.0-8.3) L 04/12/19 22:44 Albumin 1.7 g/dL (3.4-4.8) L 04/12/19 22:44 Urine Ketones Trace mg/dL (Negative) H 04/12/19 22:12 Urine Blood Large (Negative) H 04/12/19 22:12 Urine Nitrite Negative (Negative) 04/12/19 22:12 Ur Leukocyte Esterase Trace (Negative) H 04/12/19 22:12 Urine RBC 21-50 HPF (0-3) H 04/12/19 22:12 Urine WBC Greater Than 50-TNTC HPF (0-3) H 04/12/19 22:12 Ur Squamous Epith Cells 4-6 HPF (0-3) H 04/12/19 22:12 Urine Bacteria None Seen HPF (None Seen) 04/12/19 22:12 - Radiology Interpretation Chest x-ray Status: report reviewed by me (bilateral pleural efusions, mild vascular congestion) FMR H&P: A/P - Problem List (1) Acute respiratory failure with hypoxia Current Visit: No Status: Acute Code(s): J96.01 - ACUTE RESPIRATORY FAILURE WITH HYPOXIA (2) Anemia Current Visit: No Status: Acute Code(s): D64.9 - ANEMIA, UNSPECIFIED (3) Sepsis Current Visit: No Status: Acute Code(s): A41.9 - SEPSIS, UNSPECIFIED ORGANISM (4) UTI (urinary tract infection) Current Visit: No Status: Acute (5) HLD (hyperlipidemia) Current Visit: No Status: Chronic Code(s): E78.5 - HYPERLIPIDEMIA, UNSPECIFIED (6) HTN (hypertension) Current Visit: No Status: Chronic Code(s): I10 - ESSENTIAL (PRIMARY) HYPERTENSION (7) History of CVA (cerebrovascular accident) Current Visit: No Status: Chronic Code(s): Z86.73 - PRSNL HX OF TIA (TIA), AND CEREB INFRC W/O RESID DEFICITS (8) Hypothyroid Current Visit: No Status: Chronic Code(s): E03.9 - HYPOTHYROIDISM, UNSPECIFIED - Plan This is a 68 yo female with a pmh of hypothyroidism, HTN, chronic hypocalcemia, chronic normocytic anemia, HLD, hx of CVA with left sided deficit Acute hypoxic respiratory failure likely 2/2 pneumonia vs pulmonary edema -Admit to CCU -Currently intubated, 82% on RA at [place], ABG shows adequate ventilation on ventilator, plan to wean from ventilator in coming days -Broad spectrum abx -Hold maintenence IV fluids while BP is stable due to pulmonary edema on CXR. Would consider bolus if indicated Sepsis 2/2 pneumonia vs UTI -Vancomycin and zosyn -WBC elevated at 28.4 -Pending procal -Pending repeat CBC -Pending blood cultures and urine cultures -Recent urine cultures showed E coli with <10,000 colony forming Units Hypotension -Stable, plan to wean levophed, rebolus NS if pt becomes hypotensive again Atrial flutter -New since admission, pending repeat EKG -May be result of low magnesium or levophed drip -Consider AM cardiology consult Acute on chronic normocytic anemia -No reports of hematemesis, melana, or hematochezia -Nurse reports formed, brown stool with no signs of blood -Repeat AM CBC -pending stool occult blood -Transfusion threshold at Hgb <7.0 Hypokalemia -Replacing potassium and magnesium -Pending AM CMP -Pending phosphorous Hypomagnesemia -Replacing Hypoalbuminemia -1.7 on admission, appears to be dropping in the last few months, likely dietary -Consult dietitian Leukocytosis -Likely 2/2 sepsis -As above Bruise on right first toe -Consider xray Hypocalcemia vs. psuedohypocalcemia -S/P 3L NS bolus and hypoalbuninemia, corrected on admission was 7.9 -Pending AM CMP Hypothyroidism -Euthyroid 4 days ago, TSH 1.1 HTN -Hold home meds HLD -Hold meds while intubated Hx of CVA Code: Full, unable to reach next of kin at this time Prophylaxis: SCDs Family: None at bedside Fluids: SL Diet: NPO Disposition: DC to NH in 3-4 days PCP: Dr. Elliott FMR H&P: Upper Level - Pertinent history 68F with recent hospitalization for sepsis secondary to pneumonia and suspect underlying respiratory issue presents for O2 saturation in low 80's per EMS report. She was intubated in field with 300 mg of ketamine, was treated with epinephrine and 2L fluid on way to ER due to hypotension. In ER, was noted to remain hypotensive with SBP in 70's. She was started on levophed drip at 5 mcg. A right IJ central line was placed. She was found to be hypokalemic at 2.7 and was given 10 mEq of potassium. UA was concerning for infection and she was started on rocephin. Pertinent lab include hypomag, borderline hgb not at transfusion threshold, borderline hypocalcemia, indeterminate range BNP that is lower then previous admission. Patient is sedated on fentanyl and unable to provided history. Physical Exam Gen: Intubated. Frail appearing HEENT: Normocephalic, moist mucosal membrane CV: RRR with no apparent m/g/r. Right IJ central line. Right arm peripheral line. Resp: Intubated, not taking spontaneous breath, PEEP 5, PS 10, Peak pressure 27 , Resp 14, TV approximately 420 ml, 100% O2 GI: Normoactive, no masses felt, Derm: No skin ulcer noted. Bruising noted on feet and arm. Cool skin Neuro: Sedated A/P 1. Sepsis secondary to UTI vs Pneumonia - UTI on discharge 2 day prior shows less then 10k CFU. UA essentially unchanged. Possible there is UTI but less likely due to normal Ucx on last admission and appropriate treatment for a UTI - Consider pneumonia. Patient has recurrent issue with respiration on last admission, persistent pleural effusion. - Plan, treat broadly with vanc, zosyn. Obtain procal. May consider CT for better imaging in light of her persistent illness, resp issue and effusion on xray. Adequately resuscitated with fluid bolus with good pressure at this time, so will hold further fluid 2. Acute on chronic resp failure - Patient has had issue with resp status on multiple admission now. Unclear of etiology. - BNP is indeterminate, less then previously. - Consider, both echo for CHF rule out, consider CT to evaluate effusion. - Continue ventilator support at this time, consult pulm. 3. Leukocytosis - Left shift present - Likely secondary to infectious cause, will monitor 4. Normocytic anemia - Hgb 7.8. On discharge her hgb was above 12 - Plan to get hemoccult to test for GI loss. She had BM while in hospital, which was grossly not bloody - Repeat hgb in 3 hours, may need transfusion 5. Hypokalemia - At 2.7. Received 10 mEq in ER - Plan to give another 40 mEq, recheck with morning lab 6. Hypomagnesemia - At 1.4. Will replace and check phos as well 7. Hypocalcemia - When corrected for albumin, is 7.9. - As it is borderline, will correct mag first, recheck calcium afterward. Anticipate that with mag correction, ca will follow 8. Indeterminate BNP - Lower then previous admission but indeterminate at 174. In light of pleural effusion and resp failure, will get echo. 9. Protein calorie malnutrition - Albumin at 1.7. Will discuss with dietary, likely need high protein diet. 10. Atrial flutter - New issue noted when patient was moved to ICU. No flutter noted in ER - Rate control with pulse in 80's. Likely secondary to recent start of levophed , possible due to hypomag - Plan, obtain repeat EKG . TSH normal at last visit. - Plan Date/Time: 04/13/19 0126 I, [Dale Rivas], have evaluated this patient and agree with findings/plan as outlined by international organizer resident. Pertinent changes/additions are listed here. See international organizer note for chronic issues Addendum - Attending - Attending Attestation Date/Time: 04/12/19 1722 I personally evaluated the patient and discussed the management with Dr. Haji. I agree with the History, Examination, Assessment and Plan documented above with any addition or exceptions noted below. I saw the patient in the ER at 2245 on 04/12/19. She was found unresponsive at the halfway with O2 sats in the 80's. She received ketamine and rocuronium in the field as well as epinephrine reportedly due to hypotension. The patient is now intubated and there is no family to provide history. The patient is being admitted for septic shock 2/2 uti and possible pneumonia. She is requiring levophed. CXR shows pleural effusions and wbc count has worsened. Will get blood and urine cultures, place on broad spectrum antibiotics. Consult pulmonary in the morning. She has acute hypoxic respiratory failure, will defer vent mgmt to pulm. Regarding hypokalemia, will replace electrolytes. Repeat imaging tomorrow.
[2019-04-13 01:37] VITALS: BMI 18.3
[2019-04-13] MEDS ORDERED: Magnesium 2 GM/50 ML 2 GM in Premix Bag 1 BAG IVPB SCH (01:45)
[2019-04-13 01:56] LABS: Phosphorus 3.6 mg/dL (2.3-4.7)
[2019-04-13 04:45] LABS: #Lymphocytes 2.3 thou/uL (1.20-3.40); #Monocytes 1.3 thou/uL (0.11-0.59); #Neutrophils 22.4 thou/uL (1.40-6.50); %Basophils 0.1 % (0.0-1.0); %Eosinophils 0.2 % (0.0-10.0); %Lymphocytes 8.9 % (21.0-51.0); %Monocytes 4.9 % (0.0-10.0); %Neutrophils 86.1 % (42.0-75.0); Mean Corpuscular HGB CONC 31.9 g/dL (32.0-36.0); Mean Corpuscular Hemoglobin 30.2 pg (27.0-31.0); Mean Corpuscular Volume 94.8 fL (78.0-98.0); Platelet Count 281 thou/uL (130-400); RBC Distribution Width 13.4 % (11.5-14.5); Red Blood Cell (RBC) Count 2.64 mill/uL (4.20-5.40)
[2019-04-13 05:07] LABS: Troponin I Less than 0.010 ng/mL (< 0.028)
[2019-04-13 05:18] LABS: ALT (SGPT) 12 U/L (8-55); AST (SGOT) 35 U/L (5-34); Albumin 1.9 g/dL (3.4-4.8); Alkaline Phosphatase 132 U/L (40-150); Anion Gap 10 mmol/L (10-20); BUN (Urea Nitrogen) 19 mg/dL (9.8-20.1); Bilirubin, Total 0.3 mg/dL (0.2-1.2); Calc. Creatinine Clearance 53 mL/min (70-130); Calcium 7.3 mg/dL (7.8-10.44); Carbon Dioxide 27 mmol/L (23-31); Chloride 111 mmol/L (98-107); Estimated GFR-MDRD Greater than 90; Globulin 3.2 g/dL (2.4-3.5); Glucose 103 mg/dL (80-115); Protein, Total 5.1 g/dL (6.0-8.3); Sodium 145 mmol/L (136-145)
[2019-04-13] MEDS: Piperacillin/Tazobactam 4.5 GM in Sodium Chloride 0.9% 100 ML IVPB SCH ×4 (06:23→23:39)
[2019-04-13 06:25] LABS: Actual Bicarbonate (HCO3a) 23.3 mEq/L (22-28); Base Excess (BEa) 0.4 mEq/L (-2.0 to +3.0); CO2 Tension 30.9 mmHg (35.0-45.0); Calcium, Ionized 1.09 mmol/L (1.12-1.30); Carboxyhemoglobin (COHb) 0.5 gm% (0.0-3.0); Hemoglobin (Hb) 9.5 g/dL (12.0-16.0); O2 Tension (PaO2) 82.2 mmHg (> 70.0); Potassium - ABG Lab 2.85 mmol/L (3.70-5.30); Puncture Site RRA
[2019-04-13 06:26] LABS: ALV-art Gradient 306.975 (0-20)
[2019-04-13] MEDS ORDERED: Potassium Chloride 20 MEQ/100 ML PREMIX BAG IVPB SCH (08:00)
[2019-04-13] MEDS: Famotidine/PF 20 mg/2ml Vial SLOW IVP SCH ×2 (08:25→20:31)
[2019-04-13] MEDS: Famotidine 20 MG TAB PO SCH ×2 (08:25→20:27)
[2019-04-13] MEDS: Potassium Chloride 20 MEQ in Premix Bag 1 BAG IVPB SCH ×2 (08:25→10:47)
[2019-04-13] MEDS ORDERED: Prevnar 13-Val Conj/PF 0.5 ML SYRINGE IM ONE (09:00)
--- NOTE | 2019-04-13 09:07 | PDOC.FM ---
- Subjective Subjective: Pt intubated and sedated. Pt did not respond to voice commands. Pt somnolent at this time. Unable to obtain further ROS - Objective MAR Reviewed: Yes Vital Signs & Weight: Vital Signs (12 hours) Temp Pulse Resp BP BP Pulse Ox 04/13/19 07:27 96 04/13/19 07:07 82 137/83 04/13/19 07:00 98.3 F 04/13/19 06:00 14 04/13/19 04:00 97.6 F 14 04/13/19 02:00 14 04/13/19 01:00 98.0 F 04/13/19 00:15 98.1 F 86 14 109/79 100 04/13/19 00:10 100 04/13/19 00:00 14 Weight Admit Weight 41.1 kg Weight 41.1 kg Most Recent Monitor Data Heart Rate from ECG 87 NIBP 137/83 NIBP BP-Mean 101 Respiration from ECG 24 SpO2 86 I&O: 04/12/19 04/13/19 04/14/19 06:59 06:59 06:59 Intake Total 530 Output Total 190 25 Balance 340 -25 Result Diagrams: 04/13/19 04:30 04/13/19 03:30 EKG Reviewed by me: Yes Radiology Reviewed by me: Yes Radiology: Bilateral effusions again noted. ET tube in place. Phys Exam - Physical Examination Pt intubated and sedated Neck: no nodes, no JVD Crackles noted bilaterally, Decreased breath sounds Cardiovascular: RRR, no significant murmur Gastrointestinal: soft, no distention unable to assess pain Musculoskeletal: no edema, pulses present Unable to assess due to intubation and sedation Deviation from normal: Unable to assess due to intubation and sedation Skin: no rash, normal turgor, cap refill <2 seconds Dx/Plan (1) Septic shock Code(s): A41.9 - SEPSIS, UNSPECIFIED ORGANISM; R65.21 - SEVERE SEPSIS WITH SEPTIC SHOCK Status: Acute (2) HLD (hyperlipidemia) Code(s): E78.5 - HYPERLIPIDEMIA, UNSPECIFIED Status: Chronic (3) HTN (hypertension) Code(s): I10 - ESSENTIAL (PRIMARY) HYPERTENSION Status: Chronic (4) History of CVA (cerebrovascular accident) Code(s): Z86.73 - PRSNL HX OF TIA (TIA), AND CEREB INFRC W/O RESID DEFICITS Status: Chronic (5) Acute respiratory failure with hypoxia Code(s): J96.01 - ACUTE RESPIRATORY FAILURE WITH HYPOXIA Status: Resolved (6) Hypokalemia Code(s): E87.6 - HYPOKALEMIA Status: Resolved - Plan Plan: This is a 68 yo female with a pmh of hypothyroidism, HTN, chronic hypocalcemia, chronic normocytic anemia, HLD, hx of CVA with left sided deficit Acute hypoxic respiratory failure likely 2/2 pneumonia vs pulmonary edema -Admit to CCU -Currently intubated. -Pt recently hospitilized. Added levaquin to cover for HCAP. -Hold maintenence IV fluids while BP is stable due to pulmonary edema on CXR. -Will get ECHO as there are bilateral effusions. BNP normal. Septic Shock 2/2 pneumonia vs UTI -Vancomycin, Zosyn and Levaquin -WBC decreased to 26 this morning -Procal stable from last visit. .33 -Blood and Urine Cx pending- NGTD -Recent urine cultures showed E coli with <10,000 colony forming Units Hypotension (Resolved) -Stable -Pt weaned off Levophed drip 04/13. Atrial flutter -New since admission, -ECHO ordered. Will continue to monitor on Tele. May consider Cardiology consult -May be result of low magnesium or levophed drip -Consider AM cardiology consult Acute on chronic normocytic anemia -No reports of hematemesis, melana, or hematochezia -Nurse reports formed, brown stool with no signs of blood -AM CBC shows Hgb stable at 8. -pending stool occult blood -Transfusion threshold at Hgb <7.0 Hypokalemia -Replacing potassium and magnesium -AM CMP still shows low potassium. will continue to replace -Pending phosphorous Hypomagnesemia Will await repeat Mg this morning. Repeat as needed Hypoalbuminemia -1.7 on admission, appears to be dropping in the last few months, likely dietary -Consult dietitian Bruise on right first toe -Consider xray Hypocalcemia vs. psuedohypocalcemia -S/P 3L NS bolus and hypoalbuninemia, corrected on admission was 7.9. -Corrected calcium 8.5 this mroning -Continue to trend daily CMP. Hypothyroidism -Euthyroid 4 days ago, TSH 1.1 HTN -Hold home meds HLD -Hold meds while intubated Hx of CVA Pt has had reported recent [facility] detention reported that she wasn't quite herself after returning from past hospitilization. Possibly consider CT or MRI once pt is more stable. Will want to assess patients baseline. Addendum - Attending - Attending Attestation Date/Time: 04/13/19 1007 I personally evaluated the patient and discussed the management with Dr. River. I agree with the History, Examination, Assessment and Plan documented above with any addition or exceptions noted below. The patient's ET tube was a 6.5. This is being changed out. Her levophed has been weaned off. CXR pending. She is still hypokalemia persists, replace electrolytes. Will continue broad spectrum antibiotics. Adding levaquin for full hcap coverage. Getting echo.
[2019-04-13] MEDS: Albumin 25% 25 GM/100 ML BOT IVPB SCH ×3 (09:36→20:31)
[2019-04-13] MEDS: Enoxaparin Sodium 40 MG/0.4 ML SYRINGE SC SCH (09:37)
--- NOTE | 2019-04-13 12:10 | CON ---
DATE OF CONSULTATION: 04/13/2019 TIME SPENT: This is 35 minutes of critical care time. CONSULTING PHYSICIAN: Dr. Haji from [facility]. HISTORY OF PRESENT ILLNESS: The patient is a 68-year-old female, who was found to have agonal respirations in the [facility]. She was intubated by EMS en route. I do not see anywhere recorded where she actually had a cardiac arrest. She is currently unarousable. She was just seen in the hospital about 4 days ago. At that time, she was brought in as a sepsis secondary to urinary tract infection, was briefly on BiPAP before that is being discontinued. PAST MEDICAL HISTORY: 1. Stroke with left hemiparesis. 2. Hypothyroidism. 3. Gastroesophageal reflux. 4. Hypertension. 5. Seizure disorder. 6. Hyperlipidemia. PAST SURGICAL HISTORY: Not known. FAMILY MEDICAL HISTORY: Unknown. MEDICATIONS: Prior to admission; 1. Norvasc. 2. Atorvastatin. 3. Caltrate. 4. Depakote Sprinkles. 5. Glucosamine. 6. Levothyroxine. 7. Lisinopril. 8. Mirtazapine. 9. Sertraline. 10. Carbamazepine. 11. Acetaminophen. 12. Cipro. REVIEW OF SYSTEMS: Cannot be obtained secondary to the patient's altered mental status. PHYSICAL EXAMINATION: VITAL SIGNS: Heart rate 77, blood pressure 132/68, respiratory rate 18, and O2 saturation 96%. She is currently off all vasopressors. GENERAL: The patient is obtunded. She has a gaze preference to the left. She will withdraw stimulated on her feet and her right arm. HEENT: Otherwise, unremarkable. NECK: No JVD. LUNGS: Coarse breath sounds, which are diminished in both bases. CARDIAC: S1 and S2. Regular. ABDOMEN: Soft, nontender, and nondistended. EXTREMITIES: No clubbing, cyanosis, or edema. LABORATORY DATA: White blood cell count 26.0, hemoglobin 8, hematocrit 25.1, and platelet count 281. PH of 7.50, pCO2 of 30, and pO2 of 82 on SIMV rate 14, tidal volume 400, PEEP 5, pressure support 10, FiO2 of 60%. Sodium 145, potassium 3, chloride 111, CO2 of 27, BUN 19, creatinine 0.6, glucose 103 with a lactic acid of 0.6, albumin is 1.9. IMAGING DATA: Chest x-ray shows bilateral effusion/atelectasis. ET tube is in good position. She has a right IJ central line in place. ASSESSMENT: 1. Sepsis - continuing urosepsis versus pneumonia. 2. Acute hypoxic respiratory failure, requiring mechanical ventilation. 3. Severely altered mental status. 4. History of seizure disorder. 5. Electrolyte abnormalities. PLAN: We are probably looking in the situation whether the patient is basically given up on life and stopped eating at home. She has severe protein-calorie malnutrition, which has triggered electrolyte disturbances and made her more susceptible to infection. She will be treated with IV antibiotics. I will give her some albumin. We probably need to locate family and speak with them about disposition as the patient's prognosis is terrible. Job ID: [id number]
[2019-04-13] MEDS: Vancomycin HCl 500 MG in Sodium Chloride 0.9% 100 ML IVPB SCH (14:35)
--- NOTE | 2019-04-13 17:05 | RAD ---
EXAM: Portable chest: INDICATIONS: Pulmonary edema COMPARISON: 04/12/2019 FINDINGS: Right basilar infiltrate is more apparent. Bilateral effusions. ET tube, NG tube, and centr al line appears adequately positioned and unchanged. IMPRESSION: Increasing right basilar infiltrate and atelectasis when compared to prior study.
[2019-04-14] MEDS: Enalaprilat Dihydrate 1.25 MG/ML VIAL SLOW IVP SCH ×4 (00:49→23:53)
[2019-04-14] MEDS ORDERED: hydrALAZINE 20 MG/ML VIAL SLOW IVP PRN (01:23)
[2019-04-14] MEDS: Labetalol HCl 100 MG/20 ML VIAL SLOW IVP PRN ×2 (01:29→20:05)
[2019-04-14] MEDS: Vancomycin HCl 500 MG in Sodium Chloride 0.9% 100 ML IVPB SCH ×2 (01:50→14:29)
[2019-04-14] MEDS: Albumin 25% 25 GM/100 ML BOT IVPB SCH (02:40)
[2019-04-14 03:30] LABS: #Eosinphils 0.1 thou/uL (0.0-0.7); #Lymphocytes 1.3 thou/uL (1.20-3.40); #Monocytes 0.8 thou/uL (0.11-0.59); %Basophils 0.1 % (0.0-1.0); %Eosinophils 0.6 % (0.0-10.0); %Lymphocytes 10.1 % (21.0-51.0); %Monocytes 6.1 % (0.0-10.0); %Neutrophils 83.1 % (42.0-75.0); Hemoglobin 6.9 g/dL (12.0-16.0); Mean Corpuscular HGB CONC 32.3 g/dL (32.0-36.0); Mean Corpuscular Hemoglobin 30.5 pg (27.0-31.0); Mean Corpuscular Volume 94.4 fL (78.0-98.0); Mean Platelet Volume 8.3 fL (7.4-10.4); Platelet Count 215 thou/uL (130-400); RBC Distribution Width 13.4 % (11.5-14.5); Red Blood Cell (RBC) Count 2.27 mill/uL (4.20-5.40); White Blood Cell (WBC) Count 13.2 thou/uL (4.8-10.8)
[2019-04-14 03:50] LABS: Anion Gap 16 mmol/L (10-20); BUN (Urea Nitrogen) 17 mg/dL (9.8-20.1); Calc. Creatinine Clearance 48 mL/min (70-130); Calcium 8.4 mg/dL (7.8-10.44); Carbon Dioxide 21 mmol/L (23-31); Chloride 112 mmol/L (98-107); Estimated GFR-MDRD 81; Glucose 86 mg/dL (80-115); Potassium 2.9 mmol/L (3.5-5.1); Sodium 146 mmol/L (136-145)
[2019-04-14 04:25] LABS: #Eosinphils 0.1 thou/uL (0.0-0.7); #Lymphocytes 1.3 thou/uL (1.20-3.40); #Monocytes 0.8 thou/uL (0.11-0.59); #Neutrophils 11.6 thou/uL (1.40-6.50); %Eosinophils 0.5 % (0.0-10.0); %Lymphocytes 9.7 % (21.0-51.0); %Monocytes 5.6 % (0.0-10.0); %Neutrophils 84.2 % (42.0-75.0); Hemoglobin 6.8 g/dL (12.0-16.0); Mean Corpuscular HGB CONC 32.1 g/dL (32.0-36.0); Mean Corpuscular Hemoglobin 30.4 pg (27.0-31.0); Mean Corpuscular Volume 94.7 fL (78.0-98.0); Mean Platelet Volume 7.8 fL (7.4-10.4); Platelet Count 194 thou/uL (130-400); RBC Distribution Width 13.5 % (11.5-14.5); Red Blood Cell (RBC) Count 2.25 mill/uL (4.20-5.40); White Blood Cell (WBC) Count 13.7 thou/uL (4.8-10.8)
[2019-04-14] MEDS: Potassium Chloride 20 MEQ/100 ML PREMIX BAG IVPB SCH ×3 (05:59→10:25)
[2019-04-14] MEDS: Piperacillin/Tazobactam 4.5 GM in Sodium Chloride 0.9% 100 ML IVPB SCH ×4 (06:00→23:52)
--- NOTE | 2019-04-14 06:59 | PDOC.FM ---
- Subjective Subjective: Patient awake and alert this AM. She follows commands and shakes her head yes/ no in response to questions. She is not currently on any sedation. - Objective MAR Reviewed: Yes Vital Signs & Weight: Vital Signs (12 hours) Temp Pulse Resp BP Pulse Ox 04/14/19 06:00 98.6 F 04/14/19 05:24 19 04/14/19 04:00 17 04/14/19 03:22 98 187/119 H 04/14/19 01:53 17 04/14/19 01:51 98.7 F 04/14/19 01:29 98 187/119 H 04/14/19 00:49 172/93 H 04/13/19 23:59 16 04/13/19 23:00 98.4 F 04/13/19 22:00 19 04/13/19 19:38 95 04/13/19 19:27 17 04/13/19 19:00 98.5 F Weight Admit Weight 41.1 kg Weight 41.1 kg Most Recent Monitor Data Heart Rate from ECG 84 NIBP 143/84 NIBP BP-Mean 103 Respiration from ECG 20 SpO2 99 I&O: 04/12/19 04/13/19 04/14/19 06:59 06:59 06:59 Intake Total 530 2463 Output Total 190 870 Balance 340 1593 Result Diagrams: 04/14/19 03:55 04/14/19 03:00 EKG Reviewed by me: Yes Radiology Reviewed by me: Yes Phys Exam - Physical Examination Constitutional: NAD HEENT: moist MMs No coarse breath sounds evident on auscultation ET tube in place Cardiovascular: RRR Gastrointestinal: soft, non-tender, no distention Musculoskeletal: no edema, pulses present Left sided UE and LE deficits (from prior CVA) Deviation from normal: Awake and alert, following commands Skin: no rash, cap refill <2 seconds Dx/Plan (1) Septic shock Code(s): A41.9 - SEPSIS, UNSPECIFIED ORGANISM; R65.21 - SEVERE SEPSIS WITH SEPTIC SHOCK Status: Acute (2) Acute respiratory failure with hypoxia Code(s): J96.01 - ACUTE RESPIRATORY FAILURE WITH HYPOXIA Status: Acute (3) Anemia Code(s): D64.9 - ANEMIA, UNSPECIFIED Status: Acute (4) UTI (urinary tract infection) Status: Acute (5) HLD (hyperlipidemia) Code(s): E78.5 - HYPERLIPIDEMIA, UNSPECIFIED Status: Chronic (6) HTN (hypertension) Code(s): I10 - ESSENTIAL (PRIMARY) HYPERTENSION Status: Chronic (7) History of CVA (cerebrovascular accident) Code(s): Z86.73 - PRSNL HX OF TIA (TIA), AND CEREB INFRC W/O RESID DEFICITS Status: Chronic (8) Hypothyroid Code(s): E03.9 - HYPOTHYROIDISM, UNSPECIFIED Status: Chronic - Plan Plan: This is a 68 yo female with a pmh of hypothyroidism, HTN, chronic hypocalcemia, chronic normocytic anemia, HLD, hx of CVA with left sided deficit Acute hypoxic respiratory failure likely 2/2 pneumonia vs pulmonary edema -Currently intubated on CPAP settings; awake and alert this AM, following commands -Continue broad spectrum abx with coverage for HAP -Hold maintenence IV fluids while BP is stable due to pulmonary edema on CXR -Echo shows HFpEF -CXR this AM consistent with pulmonary edema -BG this AM 7.52/28. Septic Shock 2/2 pneumonia -Vancomycin, Zosyn and Levaquin for HAP coverage -WBC downtrending -Procal stable -Blood cx NGTD -Recent urine cultures showed E coli with <10,000 colony forming Units -Pt off of pressors Hypotension (Resolved) -Pt weaned off Levophed drip 04/13. -BP stable Atrial flutter, resolved -New since admission -ECHO with HFpEF -May be result of low magnesium or levophed drip Acute on chronic normocytic anemia -No reports of hematemesis, melana, or hematochezia -Nurse reports formed, brown stool with no signs of blood -AM CBC shows Hgb 6.8; however, patient received albumin yesterday, so this may be dilutional. Will transfuse one unit and monitor closely for signs of respiratory distress. Will give lasix if necessary. -Stool occult blood negative -Transfusion threshold at Hgb <7.0 Hypokalemia -Replacing potassium and magnesium -AM CMP still shows low potassium. will continue to replace Hypomagnesemia - Mg WNL Hypoalbuminemia -1.7 on admission, appears to be dropping in the last few months, likely dietary -Patient given albumin yesterday Bruise on right first toe -Consider xray Severe protein-calorie malnutrition -Patient likely not eating at [place] -Receiving feeds through OGT -Once off MV, will consult speech therapy Hypocalcemia vs. psuedohypocalcemia, resolved -S/P 3L NS bolus and hypoalbuninemia, corrected on admission was 7.9. -Continue to trend daily CMP. Hypothyroidism -Euthyroid 4 days ago, TSH 1.1 HTN -Hold home meds HLD -Hold meds while intubated Hx of CVA -Left sided deficits at baseline Pt has had reported recent falls at [facility]. No CT brain has been performed since this hospitalization. Difficulty contacting family to assess baseline mental status. Will attempt to contact family again today. Continue MV with attempt at weaning as tolerated. Patient on CPAP settings currently and doing well. Patient's mental status appears to be improving. Addendum - Attending - Attending Attestation Date/Time: 04/14/19 [id number] I personally evaluated the patient and discussed the management with Dr. Mallory Cash. I agree with the History, Examination, Assessment and Plan documented above with any addition or exceptions noted below. Pt here with acute hypoxic Resp failure 2/2 septic shock from UTI vs HCAP. On abx to cover for HCAP. Pt still intubated. Pt on spontanous breathing trial. Possibly will be extubated today. Pt has previous known defects on L. side from prior CVA. Unsure of patients baseline from previous hospitlization just a few days ago. May consider MRI once extubated and can fully assess. Reported to be having increased falls at senior care.
[2019-04-14 07:17] LABS: Actual Bicarbonate (HCO3a) 23.1 mEq/L (22-28); Base Excess (BEa) 0.5 mEq/L (-2.0 to +3.0); CO2 Tension 28.7 mmHg (35.0-45.0); Calcium, Ionized 1.14 mmol/L (1.12-1.30); Carboxyhemoglobin (COHb) 1.6 gm% (0.0-3.0); Hemoglobin (Hb) 7.3 g/dL (12.0-16.0); Potassium - ABG Lab 2.73 mmol/L (3.70-5.30); pH, Arterial 7.52 (7.35-7.45)
[2019-04-14 07:20] LABS: ALV-art Gradient 127.675 (0-20); Puncture Site RR
--- NOTE | 2019-04-14 07:55 | RAD ---
Chest one view HISTORY: Dyspnea. Pulmonary edema. COMPARISON: 04/10/2019. FINDINGS: Cardiac silhouette is magnified by projection. Pulmonary vasculature upper limits of normal . Dense infiltrates involving each lower lobe and bilateral pleural fluid are similar in appearance to the previous study allowing for differences in technique and positioning. Mediastinum is midline. Lines and tubes unchanged in position. No evidence of pneumothorax. IMPRESSION: Bibasilar infiltrates, pleural fluid, and other findings are stable.
--- NOTE | 2019-04-14 08:14 | PRG ---
DATE OF SERVICE: 04/14/2019 TIME SPENT: 35 minutes of critical care time. SUBJECTIVE: The patient remains intubated on mechanical ventilation. She will now wake up and she attempts to follow some commands. She appeared extremely weak. OBJECTIVE: VITAL SIGNS: On exam, temperature 98.2, pulse 84, and blood pressure 143/84. Total intake for 24 hours 2463, output 870. HEENT: Unremarkable. NECK: No adenopathy. No JVD. LUNGS: She has few crackles at both bases. CARDIAC: S1 and S2. Regular. ABDOMEN: Soft and nontender. EXTREMITIES: No clubbing or cyanosis. She has mild edema throughout. LABORATORY DATA: Sodium 146, potassium 3.9, chloride 112, CO2 of 21, BUN 17, creatinine 0.7, and glucose 86. PH of 7.52, pCO2 of 28, and pO2 of 86 on SIMV rate of 10, tidal volume 400, PEEP 10, pressure support 10, and FiO2 of 35%. White blood cell count 13.7, hematocrit 21.3, and platelet count 194. IMAGING DATA: X-ray shows infiltrative changes in both bases more so on the right. ASSESSMENT: 1. Sepsis, urosepsis versus pneumonia. 2. Acute hypoxic respiratory failure, requiring mechanical ventilation. 3. Improved mental status. 4. History of seizure disorder. 5. Electrolyte abnormalities. PLAN: 1. Again, I think the biggest issue is that the patient has given up on eating and has developed severe protein-calorie malnutrition that has left her susceptible to infection and so debilitated. She has trouble breathing. 2. Finish albumin infusions. 3. Give 1 unit of blood given significant anemia. 4. Spontaneous breathing trial. I would probably let her stay on spontaneous breathing through the ventilator today and if she does well today, consider extubating tomorrow. 5. Start enteral tube feeds. Job ID: [id number]
[2019-04-14] MEDS: Famotidine/PF 20 mg/2ml Vial SLOW IVP SCH ×2 (08:51→20:10)
[2019-04-14] MEDS: Enoxaparin Sodium 40 MG/0.4 ML SYRINGE SC SCH (08:51)
[2019-04-14] MEDS: Famotidine 20 MG TAB PO SCH ×2 (08:52→20:26)
[2019-04-14] MEDS ORDERED: Furosemide 40 MG/4 ML VIAL SLOW IVP SCH (12:15)
[2019-04-14 13:34] LABS: Vancomycin, Trough 15.9 ug/mL
[2019-04-14 15:29] LABS: Hemoglobin 9.1 g/dL (12.0-16.0)
[2019-04-14 15:50] LABS: Anion Gap 12 mmol/L (10-20); BUN (Urea Nitrogen) 15 mg/dL (9.8-20.1); Calc. Creatinine Clearance 50 mL/min (70-130); Calcium 8.7 mg/dL (7.8-10.44); Carbon Dioxide 25 mmol/L (23-31); Chloride 110 mmol/L (98-107); Estimated GFR-MDRD 86; Glucose 86 mg/dL (80-115); Sodium 144 mmol/L (136-145)
[2019-04-14 15:55] LABS: Potassium 2.7 mmol/L (3.5-5.1)
[2019-04-14] MEDS ORDERED: Potassium Chloride 40 MEQ in Premix Bag 1 BAG IVPB SCH (16:45)
[2019-04-14] MEDS ORDERED: CCU Electrolyte Replacement 1 EACH FS SCH (16:45)
[2019-04-14] MEDS ORDERED: Potassium Phosphate 15 MMOL in Sodium Chloride 0.9% 250 ML 250 ML IV PRN (17:01)
[2019-04-14] MEDS ORDERED: Potassium Phosphate 9 MMOL in Sodium Chloride 0.9% 100 ML IVPB PRN (17:01)
[2019-04-14] MEDS ORDERED: Magnesium Oxide 400 MG TAB PO PRN (17:01)
[2019-04-14] MEDS ORDERED: Potassium Phosphate 12 MMOL in Sodium Chloride 0.9% 250 ML 250 ML IV PRN (17:01)
[2019-04-14] MEDS ORDERED: CCU ELECTROLYTE REPLACEMENT PROTOCOL FS PRN (17:01)
[2019-04-14] MEDS ORDERED: Potassium Chloride 40 MEQ in Sodium Chloride 0.9% 250 ML 250 ML IVPB PRN (17:01)
[2019-04-14] MEDS ORDERED: Potassium Chloride 20 MEQ TAB PO PRN (17:01)
[2019-04-14] MEDS ORDERED: PHOS-NAK 1 PKT PACK PO PRN ×2 (17:01)
[2019-04-14] MEDS ORDERED: Magnesium 2 GM/50 ML 2 GM in Premix Bag 1 BAG IVPB PRN (17:01)
[2019-04-14 17:10] LABS: Magnesium 1.5 mg/dL (1.6-2.6); Phosphorus 2.6 mg/dL (2.3-4.7)
[2019-04-14] MEDS: Potassium Chloride 40 MEQ in Premix Bag 1 BAG IVPB PRN (17:43)
[2019-04-14 22:50] LABS: Anion Gap 15 mmol/L (10-20); BUN (Urea Nitrogen) 15 mg/dL (9.8-20.1); Calc. Creatinine Clearance 47 mL/min (70-130); Calcium 8.5 mg/dL (7.8-10.44); Carbon Dioxide 25 mmol/L (23-31); Chloride 108 mmol/L (98-107); Estimated GFR-MDRD 79; Glucose 99 mg/dL (80-115); Sodium 145 mmol/L (136-145)
[2019-04-14 22:52] LABS: Potassium 2.7 mmol/L (3.5-5.1)
[2019-04-15 01:44] LABS: Potassium 2.7 mmol/L (3.5-5.1)
[2019-04-15] MEDS: Vancomycin HCl 500 MG in Sodium Chloride 0.9% 100 ML IVPB SCH ×2 (02:14→13:44)
[2019-04-15] MEDS: Potassium Chloride 40 MEQ in Premix Bag 1 BAG IVPB PRN ×2 (02:15→08:02)
[2019-04-15 05:36] LABS: #Eosinphils 0.1 thou/uL (0.0-0.7); #Lymphocytes 1.6 thou/uL (1.20-3.40); #Monocytes 1.1 thou/uL (0.11-0.59); #Neutrophils 15.1 thou/uL (1.40-6.50); %Basophils 0.1 % (0.0-1.0); %Eosinophils 0.4 % (0.0-10.0); %Lymphocytes 8.9 % (21.0-51.0); %Monocytes 6.3 % (0.0-10.0); %Neutrophils 84.2 % (42.0-75.0); Hemoglobin 9.3 g/dL (12.0-16.0); Mean Corpuscular HGB CONC 33.1 g/dL (32.0-36.0); Mean Corpuscular Hemoglobin 30.8 pg (27.0-31.0); Mean Corpuscular Volume 93.2 fL (78.0-98.0); Platelet Count 197 thou/uL (130-400); RBC Distribution Width 13.4 % (11.5-14.5); Red Blood Cell (RBC) Count 3.02 mill/uL (4.20-5.40); White Blood Cell (WBC) Count 17.9 thou/uL (4.8-10.8)
[2019-04-15 05:54] LABS: Phosphorus 2.5 mg/dL (2.3-4.7)
[2019-04-15 05:55] LABS: Anion Gap 10 mmol/L (10-20); BUN (Urea Nitrogen) 18 mg/dL (9.8-20.1); Calc. Creatinine Clearance 42 mL/min (70-130); Calcium 8.4 mg/dL (7.8-10.44); Carbon Dioxide 28 mmol/L (23-31); Chloride 111 mmol/L (98-107); Estimated GFR-MDRD 71; Glucose 145 mg/dL (80-115); Magnesium 1.5 mg/dL (1.6-2.6); Potassium 3.4 mmol/L (3.5-5.1); Sodium 146 mmol/L (136-145)
[2019-04-15] MEDS: Piperacillin/Tazobactam 4.5 GM in Sodium Chloride 0.9% 100 ML IVPB SCH ×3 (05:59→17:37)
[2019-04-15] MEDS: Enalaprilat Dihydrate 1.25 MG/ML VIAL SLOW IVP SCH ×4 (06:00→18:10)
[2019-04-15 07:33] LABS: Actual Bicarbonate (HCO3a) 26.1 mEq/L (22-28); Base Excess (BEa) 3.3 mEq/L (-2.0 to +3.0); Carboxyhemoglobin (COHb) 0.9 gm% (0.0-3.0); O2 Tension (PaO2) 68.1 mmHg (> 70.0); Potassium - ABG Lab 3.21 mmol/L (3.70-5.30); pH, Arterial 7.52 (7.35-7.45)
[2019-04-15 07:35] LABS: Puncture Site RR
--- NOTE | 2019-04-15 07:37 | PDOC.FM ---
- Subjective Subjective: Patient less responsive today, but still will follow commands. She is awake and alert, but appears somnolent. - Objective MAR Reviewed: Yes Vital Signs & Weight: Vital Signs (12 hours) Temp Pulse Resp BP Pulse Ox 04/15/19 06:00 144/91 H 04/15/19 04:00 98.8 F 25 H 04/15/19 02:18 84 129/86 04/15/19 02:00 27 H 04/15/19 00:00 98.7 F 22 H 04/14/19 23:53 116/79 04/14/19 22:17 80 166/103 H 04/14/19 22:00 28 H 04/14/19 20:05 87 184/122 H 04/14/19 20:00 98.8 F 23 H 95 Weight Admit Weight 41.1 kg Weight 41.1 kg Most Recent Monitor Data Heart Rate from ECG 82 NIBP 132/87 NIBP BP-Mean 102 Respiration from ECG 24 SpO2 96 I&O: 04/14/19 04/15/19 04/16/19 06:59 06:59 06:59 Intake Total 2463 2576 Output Total 870 4190 Balance 1593 -1614 Result Diagrams: 04/15/19 05:21 04/15/19 05:21 EKG Reviewed by me: Yes Radiology Reviewed by me: Yes Phys Exam - Physical Examination Constitutional: NAD HEENT: moist MMs Decreased breath sounds throughout Cardiovascular: RRR Gastrointestinal: soft, no distention Musculoskeletal: no edema, pulses present Left sided UE and LE deficits Skin: cap refill <2 seconds Dx/Plan (1) Septic shock Code(s): A41.9 - SEPSIS, UNSPECIFIED ORGANISM; R65.21 - SEVERE SEPSIS WITH SEPTIC SHOCK Status: Acute (2) Acute respiratory failure with hypoxia Code(s): J96.01 - ACUTE RESPIRATORY FAILURE WITH HYPOXIA Status: Acute (3) Anemia Code(s): D64.9 - ANEMIA, UNSPECIFIED Status: Acute (4) UTI (urinary tract infection) Status: Acute (5) HLD (hyperlipidemia) Code(s): E78.5 - HYPERLIPIDEMIA, UNSPECIFIED Status: Chronic (6) HTN (hypertension) Code(s): I10 - ESSENTIAL (PRIMARY) HYPERTENSION Status: Chronic (7) History of CVA (cerebrovascular accident) Code(s): Z86.73 - PRSNL HX OF TIA (TIA), AND CEREB INFRC W/O RESID DEFICITS Status: Chronic (8) Hypothyroid Code(s): E03.9 - HYPOTHYROIDISM, UNSPECIFIED Status: Chronic - Plan Plan: This is a 68 yo female with a pmh of hypothyroidism, HTN, chronic hypocalcemia, chronic normocytic anemia, HLD, hx of CVA with left sided deficit ICU day #3 MV day #3 Acute hypoxic respiratory failure likely 2/2 pneumonia vs pulmonary edema -Currently intubated on CPAP settings; Less responsive this AM, but still awake , alert, and following commands -Continue broad spectrum abx with coverage for HAP -Hold maintenence IV fluids while BP is stable due to pulmonary edema on CXR -Echo shows HFpEF -CXR this AM consistent with pulmonary edema, appears to be mucous plugging in RLL. Plan for bronchoscopy per Pulmonology. -BG this AM Septic Shock 2/2 pneumonia -Vancomycin, Zosyn and Levaquin for HAP coverage (04/13) -WBC increased this AM to 17.9. However, no left shift. Afebrile. Continue to monitor. -Procal stable -Blood cx NGTD -Recent urine cultures showed E coli with <10,000 colony forming Units -Pt off of pressors Hypotension (Resolved) -Pt weaned off Levophed drip 04/13. -BP stable Atrial flutter, resolved -New since admission -ECHO with HFpEF -May be result of low magnesium or levophed drip Acute on chronic normocytic anemia -No reports of hematemesis, melana, or hematochezia -Nurse reports formed, brown stool with no signs of blood -AM CBC shows Hgb 9.3 s/p 1U pRBC's -Stool occult blood negative -Transfusion threshold at Hgb <7.0 Hypokalemia -Replacing potassium and magnesium -AM CMP still shows low potassium. will continue to replace Hypomagnesemia - Mg WNL Hypoalbuminemia -1.7 on admission, appears to be dropping in the last few months, likely dietary -Patient given albumin two days ago Bruise on right first toe -Consider xray Severe protein-calorie malnutrition -Patient likely not eating at [place] -Receiving feeds through OGT -Once off MV, will consult speech therapy Hypocalcemia vs. psuedohypocalcemia, resolved -S/P 3L NS bolus and hypoalbuninemia, corrected on admission was 7.9. -Continue to trend daily CMP. Hypothyroidism -Euthyroid 4 days ago, TSH 1.1 HTN -Hold home meds HLD -Hold meds while intubated Hx of CVA -Left sided deficits at baseline Central line: 04/13 Patel catheter: 04/13 Patient with apparent mucous plugging. Plan for bronchoscopy this AM. Will continue attempt at weaning off ventilator. Addendum - Attending - Attending Attestation Date/Time: 04/15/19 1000 I personally evaluated the patient and discussed the management with Dr. Emily Cash I agree with the History, Examination, Assessment and Plan documented above with any addition or exceptions noted below. Potassium is improved today. Will continue to monitor and replace. Pt diuresing appropriately. Sodium bumped a little since yesterday. Can adjust free water enterally if continues to climb.
[2019-04-15] MEDS: Famotidine/PF 20 mg/2ml Vial SLOW IVP SCH ×2 (08:06→21:29)
[2019-04-15] MEDS: Enoxaparin Sodium 40 MG/0.4 ML SYRINGE SC SCH (08:11)
[2019-04-15] MEDS: Famotidine 20 MG TAB PO SCH (08:12)
--- NOTE | 2019-04-15 08:29 | PRG ---
DATE OF SERVICE: 04/15/2019 35 minutes of critical care time. SUBJECTIVE: The patient remains intubated on mechanical ventilation. There has been no acute change in her condition. OBJECTIVE: VITAL SIGNS: Temperature 98.8, pulse 82, blood pressure 132/87, O2 sat 96%. Total intake for 24 hours 1621, output 4070. HEENT: Unremarkable. NECK: No JVD. LUNGS: Clear breath sounds bilaterally. CARDIAC: S1, S2. Regular. ABDOMEN: Soft, nontender. EXTREMITIES: No edema. LABORATORY DATA: White blood cell count 17.9, hematocrit 28.3, and platelet count 197. Sodium 146, potassium 3.4, chloride 101, CO2 of 28, BUN 18, creatinine 0.8, glucose 145. Chest x-ray shows right lower lobe atelectasis, worse than yesterday. ASSESSMENT: 1. Acute respiratory failure, requiring mechanical ventilation. 2. Severe protein-calorie malnutrition. 3. Right lower lobe atelectasis. 4. History of seizure disorder. 5. Hypomagnesemia. 6. High sodium. PLAN: 1. Need bronchoscopy to exclude mucus plugging, right lower lobe. 2. Continue antibiotics. 3. Consider extubation, if minimal findings on bronchoscopy. Job ID: [id number]
[2019-04-15] MEDS: Enoxaparin Sodium 30 MG/0.3 ML SYRINGE SC SCH (09:34)
[2019-04-15] MEDS: Magnesium Oxide 400 MG TAB PO PRN ×2 (09:37→13:39)
--- NOTE | 2019-04-15 10:03 | RAD ---
CHEST ONE VIEW: HISTORY: Pneumonia. Followup. COMPARISON: 04/14/2019 FINDINGS: The cardiac silhouette is magnified by projection. The pulmonary vasculature remains at the upper li mits of normal. Left perihilar and right lower lobe consolidation are similar in appearance. The me diastinum is midline. Lines and tubes appear unchanged in position. No evidence of pneumothorax. IMPRESSION: Bibasilar consolidation, pleural fluid, and other findings are stable. POS: [facility]
--- NOTE | 2019-04-15 11:13 | OP ---
DATE OF PROCEDURE: 04/15/2019 PROCEDURE PERFORMED: Fiberoptic bronchoscopy. INDICATION: Mucus plugging. ANESTHESIA: She was given propofol during this procedure. There was no family to obtain informed consent from. DESCRIPTION OF PROCEDURE: Bronchoscope was placed through the endotracheal tube while the patient was on volume cycled ventilation. There was a large mucus plug at the tip of the endotracheal tube. This was suctioned. There was copious mucus present both in the right lower lobe, right middle lobe, and left lower lobe. This was lavaged with saline and aspirated until it was clear. She tolerated the procedure well. Job ID: [id number]
[2019-04-16] MEDS: Piperacillin/Tazobactam 4.5 GM in Sodium Chloride 0.9% 100 ML IVPB SCH ×3 (00:12→12:03)
[2019-04-16] MEDS: Enalaprilat Dihydrate 1.25 MG/ML VIAL SLOW IVP SCH ×3 (00:12→12:03)
[2019-04-16 01:54] LABS: Vancomycin, Trough 19.8 ug/mL
[2019-04-16] MEDS: Vancomycin HCl 500 MG in Sodium Chloride 0.9% 100 ML IVPB SCH (02:10)
[2019-04-16 05:27] LABS: #Eosinphils 0.1 thou/uL (0.0-0.7); #Lymphocytes 1.9 thou/uL (1.20-3.40); #Neutrophils 12.6 thou/uL (1.40-6.50); %Basophils 0.2 % (0.0-1.0); %Eosinophils 0.8 % (0.0-10.0); %Lymphocytes 12.1 % (21.0-51.0); %Monocytes 6.4 % (0.0-10.0); %Neutrophils 80.5 % (42.0-75.0); Hemoglobin 8.8 g/dL (12.0-16.0); Mean Corpuscular HGB CONC 31.9 g/dL (32.0-36.0); Mean Corpuscular Hemoglobin 30.2 pg (27.0-31.0); Mean Corpuscular Volume 94.6 fL (78.0-98.0); Mean Platelet Volume 8.7 fL (7.4-10.4); Platelet Count 191 thou/uL (130-400); RBC Distribution Width 13.8 % (11.5-14.5); Red Blood Cell (RBC) Count 2.92 mill/uL (4.20-5.40); White Blood Cell (WBC) Count 15.7 thou/uL (4.8-10.8)
[2019-04-16 05:46] LABS: Anion Gap 11 mmol/L (10-20); BUN (Urea Nitrogen) 27 mg/dL (9.8-20.1); Calc. Creatinine Clearance 46 mL/min (70-130); Calcium 8.2 mg/dL (7.8-10.44); Carbon Dioxide 26 mmol/L (23-31); Chloride 112 mmol/L (98-107); Estimated GFR-MDRD 78; Glucose 120 mg/dL (80-115); Magnesium 1.5 mg/dL (1.6-2.6); Potassium 3.2 mmol/L (3.5-5.1); Sodium 146 mmol/L (136-145)
[2019-04-16] MEDS: Potassium Chloride 40 MEQ in Premix Bag 1 BAG IVPB PRN (06:24)
--- NOTE | 2019-04-16 06:36 | PDOC.FM ---
- Subjective Subjective: No significant overnight events, but patient appears to be getting weaker and has more difficulty following commands. Patient's brother did call back after hours yesterday. I will attempt to contact him this morning regarding goals of care. - Objective MAR Reviewed: Yes Vital Signs & Weight: Vital Signs (12 hours) Temp Pulse Resp BP Pulse Ox 04/16/19 06:25 130/83 04/16/19 06:00 26 H 04/16/19 04:00 28 H 04/16/19 02:36 81 142/97 H 04/16/19 02:00 22 H 04/16/19 00:12 150/96 H 04/16/19 00:00 28 H 04/15/19 22:11 85 135/92 H 04/15/19 22:00 97.9 F 18 04/15/19 21:15 97 04/15/19 20:00 29 H 04/15/19 19:00 98.8 F Weight Admit Weight 41.1 kg Weight 41.1 kg Most Recent Monitor Data Heart Rate from ECG 75 NIBP 130/83 NIBP BP-Mean 98 Respiration from ECG 21 SpO2 98 I&O: 04/14/19 04/15/19 04/16/19 06:59 06:59 06:59 Intake Total 2463 2696 3084 Output Total 870 4190 790 Balance 1593 -1494 2294 Result Diagrams: 04/16/19 04:34 04/16/19 03:30 EKG Reviewed by me: Yes Radiology Reviewed by me: Yes Phys Exam - Physical Examination On mechanical ventilation with no sedation Respiratory: clear to auscultation bilateral Cardiovascular: RRR Gastrointestinal: soft, non-tender, no distention Musculoskeletal: no edema Left sided deficits Deviation from normal: Will follow some commands Dx/Plan (1) Acute respiratory failure with hypoxia Code(s): J96.01 - ACUTE RESPIRATORY FAILURE WITH HYPOXIA Status: Acute (2) Pulmonary edema Code(s): J81.1 - CHRONIC PULMONARY EDEMA Status: Acute (3) Septic shock Code(s): A41.9 - SEPSIS, UNSPECIFIED ORGANISM; R65.21 - SEVERE SEPSIS WITH SEPTIC SHOCK Status: Resolved (4) Anemia Code(s): D64.9 - ANEMIA, UNSPECIFIED Status: Acute (5) UTI (urinary tract infection) Status: Suspected (6) HLD (hyperlipidemia) Code(s): E78.5 - HYPERLIPIDEMIA, UNSPECIFIED Status: Chronic (7) HTN (hypertension) Code(s): I10 - ESSENTIAL (PRIMARY) HYPERTENSION Status: Chronic (8) History of CVA (cerebrovascular accident) Code(s): Z86.73 - PRSNL HX OF TIA (TIA), AND CEREB INFRC W/O RESID DEFICITS Status: Chronic (9) Hypothyroid Code(s): E03.9 - HYPOTHYROIDISM, UNSPECIFIED Status: Chronic (10) Hospital-acquired pneumonia Code(s): J18.9 - PNEUMONIA, UNSPECIFIED ORGANISM; Y95 - NOSOCOMIAL CONDITION Status: Suspected - Plan Plan: This is a 68 yo female with a pmh of hypothyroidism, HTN, chronic hypocalcemia, chronic normocytic anemia, HLD, hx of CVA with left sided deficit ICU day #4 MV day #4 Acute hypoxic respiratory failure likely 2/2 pneumonia vs pulmonary edema -Currently intubated on CPAP settings -Continue broad spectrum abx with coverage for HAP (vanc, zosyn, levoquin day #4 ) -Hold maintenence IV fluids while BP is stable due to pulmonary edema on CXR -Echo shows HFpEF -CXR this AM with worsening infiltrate vs. fluid in RLL -S/p bronchoscopy for mucous plugging on 18 -Patient weak, unable to follow some commands, and does not appear to be a good candidate for successful extubation. I will attempt to contact family this AM regarding goals of care. Septic Shock 2/2 pneumonia, resolved -Vancomycin, Zosyn and Levaquin for HAP coverage (16) -WBC increased this AM to 17.9. However, no left shift. Afebrile. Continue to monitor. -Procal stable -Blood cx NGTD -Recent urine cultures showed E coli with <10,000 colony forming Units -Pt off of pressors -GS and culture sent on respiratory fluid yesterday from bronchoscopy; pending results -MV day #4 Hypotension (Resolved) -Pt weaned off Levophed drip 04/13. -BP stable Atrial flutter, resolved -New since admission -ECHO with HFpEF -May be result of low magnesium or levophed drip Acute on chronic normocytic anemia -No reports of hematemesis, melana, or hematochezia -Nurse reports formed, brown stool with no signs of blood -AM CBC shows Hgb 8.8 -s/p 1u pRBC's 04/14 -Stool occult blood negative -Transfusion threshold at Hgb <7.0 Hypokalemia -Replacing potassium and magnesium -AM CMP still shows low potassium. will continue to replace per protocol Hypomagnesemia - Continue to replace per protocol Hypoalbuminemia 2/2 severe protein calorie malnutrition -1.7 on admission, appears to be dropping in the last few months, likely dietary -Patient given albumin during admission -Patient currently on tube feeds Severe protein-calorie malnutrition -Patient likely not eating at [place] -Receiving feeds through OGT -Once off MV, will consult speech therapy Hypocalcemia vs. psuedohypocalcemia, resolved -S/P 3L NS bolus and hypoalbuninemia, corrected on admission was 7.9. -Continue to trend daily BMP Hypernatremia -Patient with significant diuresis yesterday -Free water 150 mL q4h per G-tube -Continue to monitor Hypothyroidism -TSH 1.1 HTN -May consider rec of medications if BP allows HLD -Hold meds while intubated Hx of CVA -Left sided deficits at baseline Central line: 04/13 Patel catheter: 04/13 Dispo: Guarded. Attempted to contact family yesterday. Will attempt again today. Patient reportedly fairly independent at [place] prior to recent hospitalizations. Will continue current treatment and try to wean from ventilator as tolerated.
[2019-04-16 06:57] LABS: Base Excess (BEa) 0.7 mEq/L (-2.0 to +3.0); CO2 Tension 33.4 mmHg (35.0-45.0); Calcium, Ionized 1.13 mmol/L (1.12-1.30); Carboxyhemoglobin (COHb) 0.9 gm% (0.0-3.0); Hemoglobin (Hb) 9.5 g/dL (12.0-16.0); O2 Tension (PaO2) 80.2 mmHg (> 70.0); Potassium - ABG Lab 3.13 mmol/L (3.70-5.30); pH, Arterial 7.47 (7.35-7.45)
[2019-04-16 07:08] LABS: Puncture Site RB
--- NOTE | 2019-04-16 07:41 | RAD ---
AP view chest HISTORY: Pneumonia. AP view chest obtained on 04/16/2019. Comparison made to previous exam from 04/15/2019. AP view chest demonstrates nasogastric and endotracheal tubes to be in place. A right jugular central line is in place distal tip overlying the right atrium. Bilateral pleural effusions seen. Bibasilar areas of airspace opacity seen. Radiographic appearance of the chest is stable. No newly developed abnormality seen. IMPRESSION: stable AP view chest.
--- NOTE | 2019-04-16 08:06 | PRG ---
DATE OF SERVICE: 04/16/2019 TIME SPENT: 35 minutes of critical care time. SUBJECTIVE: The patient remains intubated on mechanical ventilation. There have been no acute changes overnight. OBJECTIVE: VITAL SIGNS: Her temperature is 97.9, pulse 75, and blood pressure 130/83. A 24-hour intake 3084, output 790. HEENT: Unremarkable. NECK: No adenopathy or JVD. LUNGS: Diminished breath sounds at both bases. CARDIAC: S1 and S2. Regular. ABDOMEN: Soft and nontender. EXTREMITIES: Trace edema throughout. NEUROLOGICAL: She is not following commands. Cannot lift her head off the pillow. LABORATORY DATA: White blood cell count 15.7, hemoglobin 8.8, hematocrit 27.6, and platelet count 191. PH of 7.47, pCO2 of 33, pO2 of 80, on CPAP 5, pressure support 10, and FiO2 of 40%. Sodium 146, potassium 3.3, chloride 112, CO2 of 26, BUN 27, creatinine 0.7, glucose 120, and magnesium 1.5. IMAGING DATA: Chest x-ray shows a probable right lower lobe effusion. ASSESSMENT: 1. Acute respiratory failure, requiring mechanical ventilation. 2. Severe protein-calorie malnutrition. 3. Right pleural effusion - small. 4. History of seizure disorder. 5. Electrolyte abnormalities. PLAN: In my opinion, she is not strong enough to facilitate extubation. I am fearful that she cannot recover from current illness. Discussions seem to be made with family regarding the patient's poor prognosis and I would advise DNR status if at all possible. In the meantime, we will leave her on current mechanical ventilation settings. I will discontinue the vancomycin and the Levaquin since cultures have not grown out anything. Continue enteral tube feeds. Prognosis is poor. Job ID: [id number]
[2019-04-16] MEDS: Famotidine/PF 20 mg/2ml Vial SLOW IVP SCH (08:51)
[2019-04-16] MEDS: Enoxaparin Sodium 30 MG/0.3 ML SYRINGE SC SCH (08:51)
[2019-04-16 13:17] VITALS: TEMP 99.2
[2019-04-16] MEDS ORDERED: EPINEPHrine 1 MG/10 ML Abboject SYRINGE ONE ×3 (15:00→17:29)
[2019-04-16] MEDS ORDERED: EPINEPHrine 1 MG/ML AMP ONE (15:52)
[2019-04-16 16:11] VITALS: BP 143/96
--- NOTE | 2019-04-16 16:34 | PRG ---
DATE OF SERVICE: 04/16/2019 This is a Code Blue note. At approximately 0337 hours, the patient had asystolic arrest. This happened while she was on mechanical ventilation without any sedation. Chest compressions were started immediately. She was given sequential epinephrine at 2 to 3 minute intervals. She regained a faint pulse on 2 occasions, but would quickly degenerate into pulseless electrical activity. After approximately 15 minutes, resuscitative efforts were abandoned that she was not getting better. End-tidal CO2 would not register a readable value indicating there would be decrease likelihood of successful resuscitation. No family was available. Job ID: [id number]
--- NOTE | 2019-04-17 14:11 | DIS ---
DATE OF ADMISSION: 04/13/2019 DATE OF DISCHARGE: 04/16/2019 ATTENDING PHYSICIAN: Navdeep Ambrocio MD RESIDENT: Mallory Roach DO TIME OF : 1554 hours. CAUSE OF : 1. Pulseless electrical activity secondary to cardiac arrest. 2. Acute hypoxic respiratory failure secondary to hospital-acquired pneumonia and pulmonary edema. 3. Septic shock secondary to hospital-acquired pneumonia. 4. Severe protein-calorie malnutrition. SECONDARY DIAGNOSES: 1. Hypertension. 2. Hypothyroidism. 3. Hyperlipidemia. 4. History of cerebrovascular accident. HISTORY OF PRESENT ILLNESS/HOSPITAL COURSE: This was a 68-year-old female who was admitted to our service on 04/13 with acute hypoxic respiratory failure, on mechanical ventilation. The patient unable to be weaned from mechanical ventilator over the course of the last 4 days. Each day, the patient appeared to be getting weaker and weaker. The patient did have to have a bronchoscopy done yesterday on 04/15 due to mucus plugging and she had not been able to clear her secretions. Of note, the patient had severe protein-calorie malnutrition and her electrolyte instabilities on presentation appeared to be result of not eating or drinking an adequate amount to sustain herself. The patient was relatively stable on the ventilator on CPAP settings up until this afternoon of 06:19 at which point, she did go into PEA and had a cardiac arrest. She was unable to be resuscitated despite max efforts. An attempt was made to contact family on several occasions. No family member has returned our call, so it was unable to identify family. The patient's primary care physician was notified. Please see the notes in the EMR along with the code documentation for further details. Job ID: [id number]
--- NOTE | 2019-04-19 10:29 | EKG ---
Test Reason : Blood Pressure : / mmHG Vent. Rate : 083 BPM Atrial Rate : 083 BPM P-R Int : 180 ms QRS Dur : 078 ms QT Int : 436 ms P-R-T Axes : 056 027 -09 degrees QTc Int : 512 ms Normal sinus rhythm Prolonged QT Abnormal ECG Confirmed by KARELY WILSON M.D. ([id number]), editorial project manager POLO JUÁREZ ([id number]) on 04/19/2019 10:29:12 AM Referred By: Confirmed By:KARELY WILSON M.D.
== END 2019-04-16 15:55 | disposition expired | DRG 871 ==
LOC: ERS 21:49 → CCU 04-13 00:03
PROVIDERS: ADMIT Family Medicine; ATTEND Family Medicine
PROC: 0BH17EZ Insertion of Endotracheal Airway into Trachea, Via Natural or Artificial Opening (ICD-10-PCS; 2019-04-13)
PROC: 5A1945Z Respiratory Ventilation, 24-96 Consecutive Hours (ICD-10-PCS; 2019-04-13)
PROC: 02HV33Z Insertion of Infusion Device into Superior Vena Cava, Percutaneous Approach (ICD-10-PCS; 2019-04-13)
PROC: 3E033XZ Introduction of Vasopressor into Peripheral Vein, Percutaneous Approach (ICD-10-PCS; 2019-04-13)
PROC: 0T9B70Z Drainage of Bladder with Drainage Device, Via Natural or Artificial Opening (ICD-10-PCS; 2019-04-13)
PROC: 0BCB8ZZ Extirpation of Matter from Left Lower Lobe Bronchus, Via Natural or Artificial Opening Endoscopic (ICD-10-PCS; principal; 2019-04-15)
PROC: 0BC58ZZ Extirpation of Matter from Right Middle Lobe Bronchus, Via Natural or Artificial Opening Endoscopic (ICD-10-PCS; 2019-04-15)
PROC: 0BC68ZZ Extirpation of Matter from Right Lower Lobe Bronchus, Via Natural or Artificial Opening Endoscopic (ICD-10-PCS; 2019-04-15)
DX: A41.9 Sepsis, unspecified organism (principal); J18.9 Pneumonia, unspecified organism; J96.21 Acute and chronic respiratory failure with hypoxia; R65.21 Severe sepsis with septic shock; E43 Unspecified severe protein-calorie malnutrition; I69.354 Hemiplegia and hemiparesis following cerebral infarction affecting left non-dominant side; I48.92 Unspecified atrial flutter; N39.0 Urinary tract infection, site not specified; T17.890A Other foreign object in other parts of respiratory tract causing asphyxiation, initial encounter; I50.32 Chronic diastolic (congestive) heart failure; Z68.1 Body mass index [BMI] 19.9 or less, adult; E03.9 Hypothyroidism, unspecified; K21.9 Gastro-esophageal reflux disease without esophagitis; E78.00 Pure hypercholesterolemia, unspecified; F32.9 Major depressive disorder, single episode, unspecified; R40.2432 Glasgow coma scale score 3-8, at arrival to emergency department; E83.42 Hypomagnesemia; S90.111A Contusion of right great toe without damage to nail, initial encounter; E87.6 Hypokalemia; E83.51 Hypocalcemia; G40.909 Epilepsy, unspecified, not intractable, without status epilepticus; Y95 Nosocomial condition; I11.0 Hypertensive heart disease with heart failure; B96.20 Unspecified Escherichia coli [E. coli] as the cause of diseases classified elsewhere; I46.9 Cardiac arrest, cause unspecified; Z87.440 Personal history of urinary (tract) infections; Z79.899 Other long term (current) drug therapy
CPT/HCPCS: 36415; 36430; 71045; 80048; 80053; 80202; 81003; 81015; 82274; 82805; 83605; 83735; 83880; 84100; 84145; 84484; 85025; 86850; 86900; 86901; 87040; 87070; 87205; 93005; 93010; 93306; 94002; 94003; 94760; J0171; J0360; J0696; J1650; J1940; J1956; J2270; J2543; J2704; J3010; J3370; J3475; J3480; J3490; J7070; P9016; P9047; S0028